=== PATIENT | female | born 1955 | race Caucasian/White ===

== ENCOUNTER 2019-12-02 15:13 | Emergency (ER) | payer MEDICAID ==
[~2019-12-02] VITALS: Ht 162.6 cm; Wt 81.6 kg
[2019-12-02 15:24] VITALS: BP 100/56
--- NOTE | 2019-12-02 15:26 | NUR ---
PT WHEELCHAIRED TO ER BED 11
--- NOTE | 2019-12-02 15:30 | NUR ---
PT BROUGHT IN BY DAUGHTER FOR CONCERNED PT IS NOT TAKING CARE OF HERSELF WELL. RECENTLY NOTED JAUNDICE APPEARANCE, ASCITES, SWELLING TO HER LEGS ALSO OF PT DOWNPLAYING HER CONDITION WITH FAMILY AND HEALTHCARE STAFF. DENIES N/V/D; SKIN IS PINK/WARM/DRY; AAOX4 WITH EVEN AND STEADY GAIT; LUNGS CLEAR BL; HR EVEN AND REGULAR; PT DENIES ANY FEVER, CP, SOB, OR COUGH AT THIS TIME; PATIENT STATES PAIN OF 0/10 AT THIS TIME; VSS; PATIENT POSITIONED FOR COMFORT; HOB ELEVATED; BEDRAILS UP X1; BED DOWN. ER MD MADE AWARE OF PT STATUS.
[2019-12-02] MEDS ORDERED: DICYCLOMINE HCL LIQUID 20 MG, ALUMINUM HYD/MAG/SIMETHICONE 30 ML, LIDOCAINE VISCOUS 2% ... PO ONE ×3 (15:45)
[2019-12-02] MEDS ORDERED: DICYCLOMINE HCL LIQUID 10 MG/5 ML UDC ONE (16:08)
[2019-12-02] MEDS ORDERED: ALUMINUM HYD/MAG/SIMETHICONE 30 ML UDC ONE (16:08)
[2019-12-02] MEDS ORDERED: LIDOCAINE VISCOUS 2% 20 ML UDC ONE (16:08)
[2019-12-02 16:19] LABS: BASOPHILS % (AUTO) 0.2 % (0.0-2.0); EOSINOPHILS # (AUTO) 0.1 K/uL (0-0.4); EOSINOPHILS % (AUTO) 0.9 % (0.0-4.0); HEMATOCRIT 37.1 % (36-48); HEMOGLOBIN 12.2 g/dL (12.0-16.0); LYMPHOCYTES # (AUTO) 1.2 K/uL (2.5-16.5); MEAN CORPUSCULAR HEMOGLOBIN 31 pg (27-31); MEAN CORPUSCULAR HGB CONC 33 g/dL (33-37); MEAN CORPUSCULAR VOLUME 94.4 fL (80-94); MONOCYTES # (AUTO) 0.9 K/uL (0.8-1.0); MONOCYTES % (AUTO) 9.5 % (1.7-9.3); NEUTROPHILS # (AUTO) 7.1 K/uL (1.8-7.7); NEUTROPHILS % (AUTO) 76.4 % (42.2-75.2); PLATELET COUNT (AUTO) 154 K/uL (140-450); RED BLOOD CELL COUNT(AUTO) 3.93 MIL/uL (4.20-5.40); RED CELL DISTRIBUTION WIDTH 13.7 % (11.6-13.7); WHITE BLOOD COUNT (AUTO) 9.3 K/uL (4.8-10.8)
[2019-12-02 16:41] LABS: ALBUMIN 2.3 g/dL (3.4-5.0); ANION GAP 10.4 (8-16); CARBON DIOXIDE 27.7 mmol/L (21-32); CREATININE 1.5 mg/dL (0.6-1.3); POTASSIUM 4.1 mmol/L (3.5-5.1); TOTAL BILIRUBIN 0.8 mg/dL (0.0-1.0)
[2019-12-02] MEDS ORDERED: INSULIN LISPRO 100 UNITS/ML VIAL SUBQ ONE (16:55)
--- NOTE | 2019-12-02 17:00 | NUR ---
CALLED [facility] FOR MEDICATION VERIFICATION AND WAS TOLD THEY WILL CONTACT THE PHARMACIST AND VERIFY THE MEDS NICKI.
--- NOTE | 2019-12-02 18:26 | NUR ---
BS 285. INSULIN HUMAGLOG [address] MALONE
[2019-12-02 18:38] VITALS: BP 133/75
--- NOTE | 2019-12-02 18:38 | NUR ---
Patient discharged with v/s stable. Written and verbal after care instructions given and explained. Patient alert, oriented and verbalized understanding of instructions. Ambulatory with steady gait. All questions addressed prior to discharge. ID band removed. Patient advised to follow up with PMD. Rx of Famotidine and Peptic Relief given. Patient educated on indication of medication including possible reaction and side effects. Opportunity to ask questions provided and answered.
== END 2019-12-02 18:38 | disposition home or self-care (01) ==
LOC: MED 15:13
DX: R10.13 Epigastric pain (principal); E11.22 Type 2 diabetes mellitus with diabetic chronic kidney disease; I12.9 Hypertensive chronic kidney disease with stage 1 through stage 4 chronic kidney disease, or unspecified chronic kidney disease; N18.9 Chronic kidney disease, unspecified; E78.00 Pure hypercholesterolemia, unspecified; E11.65 Type 2 diabetes mellitus with hyperglycemia
CPT/HCPCS: 36415; 76705; 80053; 83690; 84484; 85025; 93005; 99285; J1815; Q0092

== ENCOUNTER 2020-02-12 15:44 | Inpatient (IN) | payer MEDICAID, SELFPAY ==
[~2020-02-12] VITALS: Ht 134.6 cm; Wt 85.3 kg
[2020-02-12 16:10] VITALS: BP 150/75
--- NOTE | 2020-02-12 16:22 | NUR ---
Patient transferred to bed 4 via wheelchair by triage nurse.
--- NOTE | 2020-02-12 16:50 | NUR ---
64 YEAR OLD PATIENT COMPLAINS OF BURNING ON URINATION AT TIMES, BUT DOES NOT KNOW WHEN SYMPTOMS STARTED. PER PT SHE HAS ALSO HAD UPPER ABDOMINAL PAIN AND SOMETIMES DIARRHEA, AND THAT THIS HAS BEEN SINCE LAST MONTH. PT DENIES NAUSEA, VOMITTING. PT AOX4, BREATHING EVEN AND UNLABORED, SKIN WARM AND DRY. BED IN LOWEST POSITION, LOCKED, BED RAIL UPX1. PMH - DM2, HTN ALLERGIES - NKA
--- NOTE | 2020-02-12 17:16 | NUR ---
Dr. Toth is evaluating the patient at bedside.
[2020-02-12 17:22] LABS: APPEARANCE,URINE CLEAR (CLEAR); BILIRUBIN,URINE 1+ (NEGATIVE); BLOOD, URINE NEGATIVE (NEGATIVE); COLOR,URINE ORANGE (YELLOW); LEUKOCYTE ESTERASE ,URINE 1+ (NEGATIVE); NITRITE, URINE NEGATIVE (NEGATIVE); PH,URINE 5.5 (5.0-9.0); UGLUCOSE NEGATIVE (NEGATIVE)
[2020-02-12 17:34] LABS: RBC,URINE 0-5 /HPF (0-5); WBC,URINE 16-25 (MOD) /HPF (0-5)
[2020-02-12 17:47] LABS: BASOPHILS % (AUTO) 0.2 % (0.0-2.0); EOSINOPHILS % (AUTO) 0.3 % (0.0-4.0); HEMATOCRIT 36.5 % (36-48); LYMPHOCYTES # (AUTO) 1.5 K/uL (2.5-16.5); LYMPHOCYTES % (AUTO) 19.2 % (20.5-51.1); MEAN CORPUSCULAR HEMOGLOBIN 32 pg (27-31); MEAN CORPUSCULAR HGB CONC 33 g/dL (33-37); MONOCYTES # (AUTO) 0.7 K/uL (0.8-1.0); MONOCYTES % (AUTO) 9.3 % (1.7-9.3); NEUTROPHILS # (AUTO) 5.4 K/uL (1.8-7.7); PLATELET COUNT (AUTO) 170 K/uL (140-450); RED CELL DISTRIBUTION WIDTH 15.7 % (11.6-13.7); WHITE BLOOD COUNT (AUTO) 7.6 K/uL (4.8-10.8)
[2020-02-12 18:10] LABS: ALBUMIN 2.3 g/dL (3.4-5.0); ANION GAP 13.1 (8-16); CARBON DIOXIDE 28.6 mmol/L (21-32); CREATININE 0.9 mg/dL (0.6-1.3); POTASSIUM 3.7 mmol/L (3.5-5.1); TOTAL BILIRUBIN 1.2 mg/dL (0.0-1.0)
--- NOTE | 2020-02-12 18:43 | NUR ---
ERMD MADE AWARE OF PT O2 SATURATION, PT PLACED ON 5L NC. RT AT BEDSIDE. PT MOVED TO BED 1 ISOLATION ROOM.
[2020-02-12] MEDS ORDERED: AZITHROMYCIN 500 MG in DEXTROSE 5% 250 ML IV ONE (18:55)
[2020-02-12] MEDS ORDERED: DEXAMETHASONE 10 MG/ML VIAL IVP ONE (18:55)
--- NOTE | 2020-02-12 19:15 | NUR ---
REPORT GIVEN TO MANPREET FLYNN, TRANSFER OF CARE AT THIS TIME.
[2020-02-12] MEDS ORDERED: cefTRIAXone 1,000 MG VIAL ONE (19:20)
[2020-02-12] MEDS ORDERED: AZITHROMYCIN 500 MG INJ VIAL IV ONE (19:21)
--- NOTE | 2020-02-12 19:30 | NUR ---
Dr. Toth at bedside re-evaluating pt. Pt informed that she is Covid + by ERMD. IV placed by Primary RN. Medications given as ordered.
--- NOTE | 2020-02-12 20:10 | NUR ---
PT ASSISTED TO BEDSIDE COMMODE TO USE RESTROOM. SKIN INTACT. PT ABLE TO AMBULATE WITH STEADY AGIT. PT PLACED IN GOWN. CALL LIGHT WITHIN REACH. PT REMAINS ON CLINICAL TRIAL HEAD. MEDREC COLLECTED.
--- NOTE | 2020-02-12 21:15 | NUR ---
IV removed, catheter intact and site benign. Applied folded 4x4 gauze and tape to stop bleeding.
--- NOTE | 2020-02-12 21:16 | NUR ---
IV PLACED IN L FA 24G. IV SITE PATENT.
[2020-02-12] MEDS ORDERED: ATA25 PO (21:24)
[2020-02-12] MEDS ORDERED: SIMV10TA1 PO (21:24)
[2020-02-12] MEDS ORDERED: GABA300C PO (21:24)
[2020-02-12] MEDS ORDERED: OMEP20TC12 PO (21:24)
[2020-02-12] MEDS ORDERED: DEXT 5% /NACL 0.9% 1,000 ML IV SCH (21:30)
[2020-02-12] MEDS ORDERED: HYDROcodone/APAP 7.5/325 MG 1 TAB PO PRN (21:30)
[2020-02-12] MEDS ORDERED: ONDANSETRON 4 MG/2 ML VIAL IM/IVP PRN (21:30)
[2020-02-12] MEDS ORDERED: guaiFENesin DM 200/20 MG-10 ML 10 ML UDC PO PRN (21:30)
[2020-02-12] MEDS ORDERED: POTASSIUM CHLORIDE 10 MEQ TABER PO PRN (21:30)
[2020-02-12] MEDS ORDERED: DOCUSATE SODIUM 100 MG GELCAP PO PRN (21:30)
[2020-02-12] MEDS ORDERED: ACETAMINOPHEN 325 MG TAB PO PRN (21:30)
[2020-02-12] MEDS ORDERED: ALBUTEROL SULFATE/IPRATROPIU 3 ML SOL IH PRN (21:35)
[2020-02-12] MEDS ORDERED: ALBUTEROL HFA MDI 90 MCG/ACTUATION 8 GM INH PRN (21:35)
--- NOTE | 2020-02-12 21:45 | NUR ---
XRAY AT BEDSIDE.
[2020-02-12 22:00] LABS: BARBITURATE, URINE NEGATIVE ng/ml (NEG <=200); BENZODIAZEPINE, URINE NEGATIVE ng/mL (NEG <=200); CANNABINOID, URINE NEGATIVE ng/mL (NEG <=50); COCAINE, URINE NEGATIVE ng/mL (NEG <=300); OPIATE, URINE NEGATIVE ng/mL (NEG <=2000); PHENCYCLIDINE SCREEN,URINE NEGATIVE ng/mL (NEG <=25)
--- NOTE | 2020-02-12 22:00 | NUR ---
Patient will be admitted to care of DR. ASHTON. Admited to TELE. Will go to room 119A. Belongings list completed. Report to ADEEL FLYNN. ETA: 15 MIN TO ROOM.
--- NOTE | 2020-02-12 22:00 | NUR ---
REPORT RECEIVED BY PHONE FROM CASTRO URBAN REDEVELOPMENT SPECIALIST NURSE OVER THE PHONE FOR CONTINUITY OF CARE, PT IN STABLE CONDITION.
[2020-02-12 22:05] LABS: PROTHROMBIN TIME 11.3 secs (10.8-13.4)
--- NOTE | 2020-02-12 22:15 | NUR ---
PT TAKEN TO BED 119A, PT PLACED ON TELE MONITOR AND TAKEN VIA GURNEY WITH ASSISTANCE FROM DALE BANSAL. PT WEARING MASK AND COVID PRECAUTIONS IN PLACE. PER PT GAVE PERMISSION TO TELL THAT SHE IS BEING ADIMTTED. [phone] - OSWALDO.
[2020-02-12 22:23] LABS: CHOL/HDL RATIO 5.6 (1-4.5); FREE T4 (FREE THYROXINE) 1.54 ng/dL (0.76-1.46); MAGNESIUM 1.9 mg/dL (1.8-2.4); PHOSPHORUS 2.8 mg/dL (2.5-4.9); THYROID STIMULATING HORMONE 0.97 uIU/mL (0.34-3.74)
--- NOTE | 2020-02-12 22:45 | NUR ---
PT BROUGHT UP BY JHONY TO ROOM 119 AND TRANSFERRED TO BED A. PT IS AOX4 AND SKIN INTACT. PT ON 10 LITERS NON REBREATHER MASK AND IS STATING 98%. OTHER V/S FOLLOWS: T 98.7 P 88 R 22 B/P 160/69 02 98% WITH NON REBREATHER MASK. PT IS A FALLS RISK AND AMBULATES WITH ASSISTANCE. SHE HAS A BEDSIDE COMMODE TO PIVOT TRANSFER., PT DECLINES YELLOW GOWN SIGN AND SOCKS AT THIS TIME. RISKS AND BENEFITS EXPLAINED, PT SAID SHE IS COLD NOW, MAYBE WILL CHANGE GOWNS LATER.
--- NOTE | 2020-02-13 00:30 | NUR ---
PT IN BED WITH NON REBREATHER MASK ON AT 8 LITERS SUPPLEMENTAL 02. MRSA SWAB DONE, ADMISSION QUESTIONS ASKED AND ANSWERED VIA [employer] LEAD MATERIAL HANDLER SYSTEM WITH MANDY . PT ACKNOWLEDGED UNDERSTANDING. SHE DENIES ANY PAIN AT THIS TIME. FLUIDS OF D5NS HUNG AND RUNNING AT 80MLS/HR, ORDERED. VIA 24G ON LEFT F/A. ALL REQUESTED NEEDS ATTENDED AND COMMODE AT BEDSIDE. ALL UNIVERSAL FALLS PRECAUTIONS IN PLACE.
[2020-02-13] MEDS: ALBUTEROL SULFATE/IPRATROPIU 3 ML SOL IH SCH (01:00)
--- NOTE | 2020-02-13 02:10 | NUR ---
PCR ORDERED BY MD DONE AT BEDSIDE AND SENT TO LAB.
--- NOTE | 2020-02-13 02:30 | NUR ---
PT UP AND ASSISTED TO COMMODE AND BACK. EXTENSION FOR NON REBREATHER PROVIDED. 02 AT 10 LITERS WAS DOWN TO 87% , NON REBREATHER BUMPED UP TO 13 AND WENT UP TO 90-91% RT MADE AWARE AND SAID THEY WOULD ASLO REEVALUATE PT AT BEDSIDE.
[2020-02-13 04:00] VITALS: BP 128/67
--- NOTE | 2020-02-13 04:45 | NUR ---
PT IN BED ASLEEP WITH MASK ON AT 15 LITERS PT STATING AT 90%.
[2020-02-13 06:04] LABS: BASOPHILS % (AUTO) 0.1 % (0.0-2.0); EOSINOPHILS % (AUTO) 0.2 % (0.0-4.0); HEMATOCRIT 33.7 % (36-48); HEMOGLOBIN 11.2 g/dL (12.0-16.0); LYMPHOCYTES # (AUTO) 0.9 K/uL (2.5-16.5); LYMPHOCYTES % (AUTO) 19.9 % (20.5-51.1); MEAN CORPUSCULAR HEMOGLOBIN 32 pg (27-31); MEAN CORPUSCULAR HGB CONC 33 g/dL (33-37); MEAN CORPUSCULAR VOLUME 96.4 fL (80-94); MONOCYTES # (AUTO) 0.2 K/uL (0.8-1.0); MONOCYTES % (AUTO) 4.2 % (1.7-9.3); NEUTROPHILS # (AUTO) 3.2 K/uL (1.8-7.7); NEUTROPHILS % (AUTO) 75.6 % (42.2-75.2); PLATELET COUNT (AUTO) 152 K/uL (140-450); RED BLOOD CELL COUNT(AUTO) 3.49 MIL/uL (4.20-5.40); RED CELL DISTRIBUTION WIDTH 15.5 % (11.6-13.7); WHITE BLOOD COUNT (AUTO) 4.3 K/uL (4.8-10.8)
[2020-02-13 06:32] LABS: ALBUMIN 2.1 g/dL (3.4-5.0); ANION GAP 12.9 (8-16); CARBON DIOXIDE 26.7 mmol/L (21-32); CREATININE 0.9 mg/dL (0.6-1.3); POTASSIUM 3.6 mmol/L (3.5-5.1); TOTAL BILIRUBIN 0.9 mg/dL (0.0-1.0)
--- NOTE | 2020-02-13 07:30 | NUR ---
RECEIVED BEDSIDE REPORT FROM FUEL BUYER NURSE ADEEL RN, PT RESTING, NO DISTRESS NOTED, PT ON NONREBREATHER MASK 15LPM O2, NO SOB NOTED, PT SATURATING @ 92%, PT ALERT ORIENTED CITIZEN OF [place] SPEAKING, ABLE TO LET NEEDS KNOWN, IV TO L AC 24 G PATENT INTACT, INFUSING D5NS @ 80ML/HR, INFUSING WELL, INITIAL ASSESSMENT DONE, ALL SAFETY PRECAUTION, WILL CONTINUE TO MONITOR.
[2020-02-13 08:00] VITALS: BP 136/77
[2020-02-13] MEDS ORDERED: DEXTROSE 50% 50 ML SYR IVP PRN (08:10)
[2020-02-13] MEDS ORDERED: AZITHROMYCIN 250 MG TAB PO SCH (09:00)
--- NOTE | 2020-02-13 09:12 | NUR ---
PATIENT HAS BEEN SCREENED AND CATEGORIZED HIGH NUTRITION RISK. PATIENT WILL BE SEEN WITHIN 1-2 DAYS OF ADMISSION. 02/13/20-02/14/[address]
[2020-02-13] MEDS: PANTOPRAZOLE 40 MG TABEC PO SCH (09:31)
[2020-02-13] MEDS: ZINC SULF 220 MG CAP PO SCH (09:31)
--- NOTE | 2020-02-13 09:31 | NUR ---
DUE MEDICATION GIVEN, PT TOLERATED WELL, NO DISTRESS NOTED, WILL CONTINUE TO MONITOR.
[2020-02-13] MEDS: ASCORBIC ACID 500 MG TAB PO SCH (10:10)
[2020-02-13] MEDS ORDERED: LOVENOX 1MG/KG Q12H SUBQ SCH (10:20)
--- NOTE | 2020-02-13 11:28 | NUR ---
SOCIAL WORK NOTE: SW WAS UNABLE TO MEET PATIENT AT BEDSIDE DUE TO MEDICAL CONDITION. SW CONTACTED PATIENT'S ROOM PHONE BUT PATIENT DID NOT ANSWER. SW CONTACTED EMERGENCY CONTACT, OSWALDO BARAHONA - - [phone] AND DAUGHTER - CATHY WEEKS - [phone] AND LEFT VM. SW WILL FOLLOW UP TO COMPLETE ASSESSMENT. Addendum: 02/19/20 at 1353 by Armando Douglas SS [facility] Patient: Sharri Barahona : 1955 Age/Sex: 64/F Unit#: [id number] Room/Bed: IC01/A User: Armando CHRISTIANSON Date: 02/19/20 13:49 Type: CM Discharge Plan Assessment Patient's Orientation Unable To Assess Information Provided By CATHY GOODENYES - DAUGHTER Comments SW WAS UNABLE TO MEET PATIENT AT BEDSIDE DUE TO MEDICAL CONDITION. SW CONTACTED PATIENT'S AND LEFT VM. SW CALLED PATIENT'S DAUGHTER AND COMPLETED ASSESSMENT. Furniture Sales Associate, Realtionship and Phone Number OSWALDO BARAHONA [phone] CATHY WEEKS DAUGHTER [phone] Healthcare Power of Gasket Inspector No Does Patient Have a POLST No Identifying Problems No Social Work Triggers Is A Social Work Consult Needed No Mandate Report Filed No Explanation Of Identifying Problems PATIENT IS A 64-YEAR-OLD FEMALE ADMITTED FOR COVID+ AND HYPOXIA. PATIENT HAS PMHX OF BREAST CANCER, HYPERLIPEDEMIA, HYPERTENSION, DIABETES, AND PARAPLEGIA. DAUGHTER REPORTED NO HISTORY OF MENTAL HEALTH OR SUBSTANCE ABUSE. Admitted From Home Pre-Admission Level Of Functioning Status Assist With ADL Level Of Functioning Comment PER DAUGHTER, PATIENT'S ASSISTS WITH PREPARING MEALS AND BATHING. Prior Resources/Services Used In Last 12 Months No Prior Resources Used Prior DME Wheelchair Dialysis Comments N/A Living Situation House Lives With Spouse Patient Had Caregiver No Home Support CG/Fam Able To Meet Need Financial Issues No Known Financial Issue Referral To The Financial Counselor Needed No Factors/Needs No D/C Needs Identified Explanation And Or Other Factors Affecting/Possible DC Needs PATIENT'S DAUGHTER STATED SHE WOULD PROVIDE TRANSPORTATION FOR PATIENT TO RETURN HOME. Pt/Rep Participated In Discharge Plan Yes Patient/Family Agress With Discharge Plan Yes Discharge Plan Comments TENTATIVE DISCHARGE PLAN IS FOR PATIENT TO RETURN HOME. DC Plan Status Initiated Addendum: 02/23/20 at 1450 by Armando Douglas SS [facility] CONTACTED CATHY MICKY [phone] TO FOLLOW UP WITH FAMILY AND OFFER RESOURCES OR COUNSELING. CATHY POLITELY DECLINED AND REQUESTED FOR [facility] PHONE NUMBER. [facility] PROVIDED DIRECT LINE AND WILL REMAIN AVAILABLE IF FURTHER ISSUES ARISE.
[2020-02-13] MEDS: BLOOD GLUCOSE MONITORING 1 DEV DEV FS SCH ×3 (11:30→20:47)
--- NOTE | 2020-02-13 11:30 | NUR ---
PT BLOOD SUGAR 405, NOTIFIED DR. ASHTON, PER DR TO GIVE SLIDING SCALE 10 UNITS, AND TO ORDER METFORMIN 100MG PO BID AND GIVE ONE RIGHT NOW. WILL PUT IN ORDERS AND CONTINUE WITH ORDERS.
[2020-02-13 12:00] VITALS: BP 151/79
[2020-02-13] MEDS ORDERED: metFORMIN 500 MG TAB PO SCH (12:50)
[2020-02-13] MEDS: NACL 0.9% 1,000 ML IV SCH (13:48)
--- NOTE | 2020-02-13 13:48 | NUR ---
METFORMIN GIVEN, PT TOLERATED WELL, BEDDING CHANGED PER PT REQUEST, PT RESTING, WILL CONTINUE TO MONITOR.
--- NOTE | 2020-02-13 14:24 | NUR ---
DC PLANNIN YRS OLD FEMALE PATIENT WAS ADMITTED FROM HOME WITH A DX OF COVID+ HYPOXIA. PT HAS A HX OF BREAST CANCER, HTN, DM AND PARAPLEGIA. CXR SHOWED BILATERAL AIRSPACE CONSOLIDATION CAN RELATE TO PULMONARY EDEMA. CT ABD SHOWED LIVER CIRRHOSIS.RAPID COVID TEST POSITIVE , PCR IS PENDING. BLOOD AND URINE CULTURE PENDING. ON O2 15L NON-REBREATHER SATING 90. STARTED COVID PROTOCOL IVF ,IV ABX ROCEPHIN AND AZITHROMYCIN AND CONTINUE HOME MEDS. CONSULTED WITH PULMO AND ID. DC PLAN TO GO HOME WHEN STABLE. CM TO FOLLOW Addendum: 02/20/20 at 1202 by Elise Saravia PATIENT REMAINS SEDATED AND INTUBATED. ON AMIODARONE PO, ROCEPHIN, SOLU MEDROL. CURRENT LABS INCLUDE WBC 11.3, H/H 9.7/30.6, NA/K 143/3.9, BUN/CREA 78/2.7, ALB 1.9. SEEN BY PULMO - PRONING PROTOCOL, HOLD ANTICOAGULATION DUE TO LOW PLT, TITRATE FIO2 TO KEEP SAT >88%. Addendum: 02/21/20 at 1218 by Elise B. Berdijo CM S/P HD CATHETER PLACEMENT 02/20/[address] MARTINEZ FOR HD TODAY Addendum: 02/23/20 at 1219 by Elise Saravia CM REMAINS INTUBATED AND SEDATED TO VENT, FIO2 55%, PEEP 11, O2 SAT 94%. CURRENT LABS INCLUDE WBC 11.0, H/H 8.9/27.2, NA/K 139/3.6, BUN/CREA 54/2.4, MAG 1.7. ON SOLU MEDROL, ROCEPHIN. SEEN BY PULMO - PRONING PROTOCOL, TITRATE FIO2 TO KEEP SAT >88%. SEEN BY NEPHRO - HD TODAY AND TOMORROW, TUBE FEEDING TO RESUMED EVEN IN PRONE, MONITOR UOP AND LABS CLOSELY. SEEN BY CARDIO - WILL ADD PRN IV CARDIZEM, NIK SYNEPHRINE FO SBP >90, MAP >65, EVENTUAL ECHO PENDING ISOLATION RESTRICTIONS. ON ROCEPHIN, SOLU MEDROL, REGLAN.
--- NOTE | 2020-02-13 15:30 | NUR ---
02/13/20 RD INITIAL ASSESSMENT COMPLETED PLEASE REFER TO NUTRITION ASSESSMENT UNDER CARE ACTIVITY FOR ESTIMATED NUTRITIONAL NEEDS. 1. CONTINUE CLEAR LIQUID DIET TOLERATED 2. RECOMMEND ENSURE CLEAR TID 3. IF/WHEN MEDICALLY STABLE, CONSIDER CCHO 45 GM DIET WITH GLUCERNA BID 4. RD PROVIDED NUTRITION EDUCATION REGARDING COVID-[address] TO FOLLOW-UP 3-5 DAYS, MODERATE RISK FAM WYLIE RD
[2020-02-13 16:00] VITALS: BP 145/72
[2020-02-13] MEDS: metFORMIN 500 MG TAB PO SCH ×2 (16:09→20:32)
--- NOTE | 2020-02-13 16:09 | NUR ---
CALLED PHARMACY REGARDING DOSE OF METFORMIN DUE @ 1700, PT JUST GOT A DOSE @ 1400, PER PHARMACY TO HOLD MEDICATION THE DOSE IS TOO CLOSE
[2020-02-13] MEDS ORDERED: remdesivir COMMUNICATION ORDER 1 EA MISC MC PRN (17:10)
[2020-02-13] MEDS: INSULIN LISPRO SLIDING SCALE 100 UNITS/ML VIAL SUBQ PRN ×2 (17:20→20:48)
[2020-02-13] MEDS ORDERED: CLINICAL MONITORING MC PRN (17:40)
[2020-02-13] MEDS ORDERED: LOPERAMIDE 2 MG CAP PO PRN ×2 (18:10→18:15)
[2020-02-13] MEDS: REMDESIVIR (EUA) 100 MG in NACL 0.9% 100 ML IV SCH (18:30)
[2020-02-13] MEDS ORDERED: REMDESIVIR (EUA) 200 MG in NACL 0.9% 100 ML IV SCH (18:30)
--- NOTE | 2020-02-13 19:25 | NUR ---
ENDORSED PT TO AUTO HEATER MECHANIC NURSE STONEY, PT RESTING, CALL LIGHT WITHIN REACH.
--- NOTE | 2020-02-13 19:26 | NUR ---
RECEIVED BEDSIDE REPORT FROM DAY SHIFT NURSE. PT IN BED WITH HOB ELEVATED. PT AAOX4, ABLE TO MAKE NEEDS KNOWN. PT ON O2 15LPM/NRB. PT NOT IN DISTRESS, NO SOB NOTED. CURRENT O2 SAT 90%. ABDOMEN SOFT AND NON-TENDER. PT WITH EPISODES OF DIARRHEA. SKIN IS WARM, DRY, AND INTACT. PT WITH IV ACCESS ON L AC 24G PATENT INTACT, IVF INFUSING WELL. PT DENIES ANY PAIN OR DISCOMFORT AT THIS TIME. NO REQUESTS MADE. PT KEPT COMFORTABLE. SAFETY PRECAUTIONS IN PLACE, CALL LIGHT WITHIN REACH. WILL CONTINUE TO MONITOR.
[2020-02-13 20:25] VITALS: BP 122/70
[2020-02-13] MEDS: ENOXAPARIN 60 MG/0.6 ML SYR SUBQ SCH (20:33)
--- NOTE | 2020-02-13 20:43 | NUR ---
Positive COVID-19 test results were received from lab. A copy of the test results were given to Infection
--- NOTE | 2020-02-13 20:48 | NUR ---
VS STABLE. SCHEDULED MEDS GIVEN ORDERED. BLOOD SUGAR 273. INSULIN COVERAGE GIVEN ORDERED. O2 15LPM/NRB IN PLACE. PT NOT IN DISTRESS. SAFETY MEASURES IN PLACE. CALL LIGHT WITHIN REACH. WILL CONTINUE TO MONITOR.
--- NOTE | 2020-02-13 22:03 | NUR ---
ROUNDS MADE. PT IN BED WATCHING TV. O2 IN PLACE. PT NOT IN DISTRESS. O2 SAT 90%. DENIES ANY PAIN OR DISCOMFORT. PT KEPT COMFORTABLE. SAFETY MEASURES IN PLACE, CALL LIGHT WITHIN REACH. WILL CONTINUE TO MONITOR.
[2020-02-13] MEDS ORDERED: Z-GUARD PASTE TP PRN (23:00)
[2020-02-14] VITALS (7 sets, daily range): BP systolic 118–145; BP diastolic 59–78
--- NOTE | 2020-02-14 00:11 | NUR ---
VS STABLE. O2 IN PLACE. PT NOT IN DISTRESS. ASSISTED CREASING MACHINE OPERATOR IN PERINEAL CARE. PT TOLERATED CARE PROVIDED. NO REQUESTS MADE. PT KEPT COMFORTABLE. SAFETY MEASURES IN PLACE. CALL LIGHT WITHIN REACH. WILL CONTINUE TO MONITOR.
[2020-02-14] MEDS: NACL 0.9% 1,000 ML IV SCH ×2 (01:10→15:31)
[2020-02-14] MEDS: Z-GUARD PASTE TP SCH ×2 (01:20→13:00)
[2020-02-14] MEDS: ZOLPIDEM 5 MG TAB PO PRN ×2 (02:07→23:10)
--- NOTE | 2020-02-14 02:07 | NUR ---
PT COMPLAINING OF DIFFICULTY SLEEPING AND HAVING MULTIPLE BOWEL MOVEMENTS. PRN AMBIEN AND IMMODIUM GIVEN ORDERED. WILL CONTINUE TO MONITOR.
--- NOTE | 2020-02-14 04:09 | NUR ---
VS STABLE. PT IN BED RESTING WITH HOB ELEVATED. NRB MASK IN PLACE. CURRENT O2 SAT 93%. PT KEPT COMFORTABLE. SAFETY MEASURES IN PLACE. CALL LIGHT WITHIN REACH. WILL CONTINUE TO MONITOR.
--- NOTE | 2020-02-14 05:20 | NUR ---
HEARD PATIENT SCREAMING. WENT TO ROOM AND FOUND THE PT SITTING ON THE FLOOR BESIDE THE BED WITHOUT HER NON-REBREATHER MASK. PT SAID SHE WAS TRYING TO GO TO HER BEDSIDE COMMODE THEN SHE FELL BUTTOCKS FIRST AND HIT HER HEAD ON THE SIDE OF BED. PT DENIES ANY PAIN AT THIS TIME. PT ASSISTED BACK TO BED AND PLACED NON REBREATHER MASK ON. O2 SAT NOW BACK TO 88%. PERINEAL CARE DONE WELL. PT INSTRUCTED NOT TO GET OUT OF BED AND USE HER CALL LIGHT AND ASK FOR ASSISTANCE SHE WAS DOING ALL NIGHT. MD AWARE, HEAD CT ORDERED. SAFETY MEASURES IN PLACE. BED IN LOW POSITION, SIDE RAILS RAISED, YELLOW SOCKS ON, CALL LIGHT WITHIN REACH. WILL CONTINUE TO MONITOR. Addendum: 02/14/20 at 0623 by Mike Buenrostro RN VITAL SIGNS STABLE
[2020-02-14 05:27] LABS: BASOPHILS % (AUTO) 0.1 % (0.0-2.0); HEMATOCRIT 33.6 % (36-48); LYMPHOCYTES # (AUTO) 0.9 K/uL (2.5-16.5); LYMPHOCYTES % (AUTO) 8.9 % (20.5-51.1); MEAN CORPUSCULAR HEMOGLOBIN 32 pg (27-31); MEAN CORPUSCULAR HGB CONC 33 g/dL (33-37); MEAN CORPUSCULAR VOLUME 96.9 fL (80-94); MONOCYTES # (AUTO) 0.6 K/uL (0.8-1.0); MONOCYTES % (AUTO) 5.6 % (1.7-9.3); NEUTROPHILS # (AUTO) 8.4 K/uL (1.8-7.7); NEUTROPHILS % (AUTO) 85.4 % (42.2-75.2); PLATELET COUNT (AUTO) 161 K/uL (140-450); RED BLOOD CELL COUNT(AUTO) 3.47 MIL/uL (4.20-5.40); RED CELL DISTRIBUTION WIDTH 15.9 % (11.6-13.7); WHITE BLOOD COUNT (AUTO) 9.8 K/uL (4.8-10.8)
[2020-02-14 06:39] LABS: ALBUMIN 1.9 g/dL (3.4-5.0); ANION GAP 14.1 (8-16); CREATININE 0.7 mg/dL (0.6-1.3); POTASSIUM 3.1 mmol/L (3.5-5.1); TOTAL BILIRUBIN 0.6 mg/dL (0.0-1.0)
[2020-02-14] MEDS: BLOOD GLUCOSE MONITORING 1 DEV DEV FS SCH ×4 (06:42→22:00)
[2020-02-14] MEDS: INSULIN LISPRO SLIDING SCALE 100 UNITS/ML VIAL SUBQ PRN ×4 (06:44→21:30)
--- NOTE | 2020-02-14 07:28 | NUR ---
ENDORSED TO DAY SHIFT NURSE FOR CONTINUITY OF CARE
[2020-02-14 08:25] LABS: T4 (THYROXINE) 9.2 ug/dL (4.5-12.0)
[2020-02-14] MEDS: ASCORBIC ACID 500 MG TAB PO SCH (09:11)
[2020-02-14] MEDS: PANTOPRAZOLE 40 MG TABEC PO SCH (09:11)
[2020-02-14] MEDS: ZINC SULF 220 MG CAP PO SCH (09:11)
[2020-02-14] MEDS: ENOXAPARIN 60 MG/0.6 ML SYR SUBQ SCH ×2 (09:20→21:30)
--- NOTE | 2020-02-14 09:20 | NUR ---
PATIENT'S O2 SAT 95% WITH 15L NRB. CALLED RT, PER RT LUIS, KEEP O2 SAT >80% WITH COVID PT WITH 15L NRB. ENCOURAGED PATIENT TO TAKE DEEP BREATH AND RELAX. SAFETY MEASURES IN PLACE, CALL LIGHT WITHIN REACH. WILL CONTINUE TO MONITOR. Addendum: 02/14/20 at 2025 by Amina Abbott RN O2 SAT 85%, NOT 95%.
[2020-02-14] MEDS: metFORMIN 500 MG TAB PO SCH ×2 (09:31→17:12)
--- NOTE | 2020-02-14 09:31 | NUR ---
CALLED THE PHARMACY TO CLARIFIED WITH PHARMACIST REGARDING THE METFORMIN BID. SCHOOL COMMISSIONER NURSE USED 02/14/2020 0800 SLOT. ADMINISTERED METFORMIN 1000MG. WILL FOLLOW THE SCHEDULE TO GIVE MEDICATION.
--- NOTE | 2020-02-14 09:40 | NUR ---
RECHECKED PATIENT. O2 SAT 93% WHILE PATIENT IN SITTING POSITION. SAFETY MEASURES IN PLACE, CALL LIGHT WITHIN REACH. WILL CONTINUE TO MONITOR.
--- NOTE | 2020-02-14 11:42 | NUR ---
4 UNITS OF HUMALOG GIVEN FOR BLOOD GLUCOSE LEVEL 208. EDUCATION PROVIDED. PATIENT TOLERATED WELL. O2 SAT 89% WITH 15L NRB. ENCOURAGED PATIENT TO RELAX, TAKE DEEP BREATHE. PATIENT VERBALIZED UNDERSTAND. WILL CONTINUE TO MONITOR.
--- NOTE | 2020-02-14 13:27 | NUR ---
PATIENT'S O2 SAT 86% WITH 15L NRB. HR 93. ENCOURAGED PATIENT TO TAKE DEEP BREATH AND KEEP THE NRB MASK ON. PER RT RAHJE, KEEP O2 SAT ABOVE 80% FOR COVID PATIENT WITH 15L NRB. WILL CONTINUE TO MONITOR.
--- NOTE | 2020-02-14 14:15 | NUR ---
DISCONTINUED IV AT LEFT FOREARM. STARTED NEW IV AT LEFT AC 20G, EASILY FLUSH WITH NS. PATIENT DENIES PAIN. ENCOURAGED PATIENT TO TAKE DEEP BREATH. O2 SAT INCREASED FROM 88% TO 90%. HR 80. SAFETY MEASURES IN PLACE, WILL CONTINUE TO MONITOR.
[2020-02-14] MEDS ORDERED: POTASSIUM CHLORIDE 40 MEQ, LIDOCAINE MPF 1% 25 MG in NACL 0.9% 250 ML IV SCH (15:00)
--- NOTE | 2020-02-14 15:30 | NUR ---
ADMINISTERED 40 MEQ K RIDER WITH LIDOCAINE FOR POTASSIUM LEVEL 3.1, EDUCATION PROVIDED. PATIENT TOLERATED WELL. O2 SAT 85% WITH 15L NRB. INSTRUCTED THE PATIENT TO TAKE DEEP BREATHE. O2 SAT INCREASED TO 89%. ENCOURAGED PATIENT TO TAKE DEEP BREATH. SAFETY MEASURES IN PLACE, CALL LIGHT WITHIN REACH. WILL CONTINUE TO MONITOR.
--- NOTE | 2020-02-14 16:02 | NUR ---
FOUND PATIENT'S O2 SAT SUPER LOW, 22%. OFF OXYGEN AND SHALLOW BREATHING. SKIN COLOR TURNED PURPLE. CALLED RAPID RESPONSE. PUT BACK OF THE NRB. VITAL SIGNS CHECKED. SBP 150S. HR 130S. O2 SAT GOT BACK TO 87%, AND PATIENT GOT BACK OF THE CONSCIOUSNESS. PATIENT REFUSED INTUBATION AT THIS TIME. RESTRAIN GIVEN FOR PREVENT TAKING OFF THE OXYGEN. WILL CLOSELY TO MONITOR THE PATIENT.
--- NOTE | 2020-02-14 16:13 | NUR ---
RESPONDED TO PATIENTS ROOM FOR A RAPID RESPONSE. PATIENT IS ON NON-REBREATHER. PATIENT IS ALERT ORIENTED AND [place] SPEAKING. PATIENTS IS ON FIO2 100 NRB. PATIENTS SPO2 SLOWLY IMPROVED TO SPO2 85 HEART RATE 110BPM. PATIENT IS SPEAKING AND COMMUNICATING TO RN. SPOKE TO DR. ASHTON REGARDING PATIENT CONDITION DURING RAPID RESPONSE BUT PATIENTS STATUS IMPROVED AND PATIENT DID NOT WANT TO BE INTUBATED AT THIS TIME. RN AND MEDICAL STAFF WILL CLOSELY MONITOR PATIENT AND IF HER STATUS DECLINES WE WILL NOTIFY DOCTOR. CHARGE NURSE AND RN AWARE AND NOTIFIED.
--- NOTE | 2020-02-14 16:42 | NUR ---
CHECKED PATIENT, O2 SAT 91% WITH 15L NRB. FEED PATIENT WITH WATER. EXPLAINED TO THE PATIENT IF THE 15L NRB NOT GOING TO WORK GOOD ENOUGH, SHE MAY NEED INTUBATION. PATIENT STATED THAT SHE DOES NOT WANT GET THE INTUBATION. ENCOURAGED THE PATIENT TO RELAX AND TAKE DEEP BREATHE. WILL CONTINUE TO MONITOR.
[2020-02-14] MEDS: REMDESIVIR (EUA) 100 MG in NACL 0.9% 100 ML IV SCH ×3 (17:59→21:20)
--- NOTE | 2020-02-14 18:03 | NUR ---
FEED PATIENT WITH WATER. PATIENT'2 O2 DESAT DRAMATICALLY TO 77% WHEN FEEDING THE WATER. REAPPLIED THE OXYGEN. O2 SAT INCREASED BACK TO 88% IN ABOUT 3-4 MINS. HR 89. WILL CONTINUE TO MONITOR.
--- NOTE | 2020-02-14 18:23 | NUR ---
O2 SAT 88% WITH 15L NRB. HR 91. WILL CONTINUE TO MONITOR.
--- NOTE | 2020-02-14 18:30 | NUR ---
IV K RIDER STILL INFUSING. REMDESIVIR NOT BEEN GIVEN.
--- NOTE | 2020-02-14 19:30 | NUR ---
RECEIVED ENDORSEMENT FROM GEE ISLAS. WE WENT TO PT ROOM, PT O2 SAT WAS 36%, ROSHAN PUT BACK THE NRM, CALLED RT, LABORED BREATHING NOTED, RT CAME IN IMMEDIATELY. INFORMED DR. ASHTON ON PT CONDITION AT 194, SAID TO PUT PATIENT ON BIPAP BECAUSE PT WAS REFUSING TO BE INTUBATED THIS MORNING, STILL PT REFUSED TO BE INTUBATED UP TO NOW, ALSO, IS OK TO CHECK THE ABG AND TO TRANSFER TO ICU. PT O2 SAT WENT UP TO 86% AT 1999. Nakul.Aliyah RG CAME IN TO CHECK PT AT 2009, E.R. DOCTOR SAID TO ASK THE OTHER FAMILY IF THEY WANT TO CONTINUE W/ INTUBATION WHEN THE CONDITION NECESSITATES.
--- NOTE | 2020-02-14 20:00 | NUR ---
EKG GIVEN BY THE ARMORED CABLE MACHINE OPERATOR TO JOANN VITICULTURIST.
--- NOTE | 2020-02-14 20:15 | NUR ---
SPOKE TO OSWALDO ( OF PATIENT) IN THE LOBBY, INFORMED HIM OF PATIENT CONDITION. ASKED HIM THAT IF THE TIME COMES WHEN PATIENT NEEDS TO BE INTUBATED, WILL HE BE OK WITH IT? STATES TO DO EVERYTHING LIKE INTUBATE PATIENT WHEN NEEDED AND DO EVERYTHING TO HELP PT. ALSO, INFORMED THE THAT I WILL TRANSFER THE PT TO ICU TO CLOSELY MONITOR THE PATIENT. VERBALIZED UNDERSTANDING. ANSWERED ALL QUESTIONS.
--- NOTE | 2020-02-14 20:30 | NUR ---
INFORMED THE R.T THAT IS OK W/ INTUBATION AND TO DO EVERYTHING TO HELP THE PATIENT. WORKING ON TRANSFERRING THE PATIENT AT THIS TIME. O2 SAT FLUCTUATING AT 84%-86%, CONTINUE ON NRM AT 15L. CALL LIGHT WITHIN REACH.
--- NOTE | 2020-02-14 21:00 | NUR ---
TRANSFERRED PT TO ICU, PT ON PORTABLE O2 AT 15L VIA NRM, SURGICAL MASK ON WHILE TRANSFER, NO DISTRESS, NO SOB, PORTABLE TELE MONITOR ATTACHED. PEREZ, RN MUMPS DEVELOPER HELPED W/ THE TRANSFER, ALL BELONGINGS GIVEN W/ THE PT AND ALL PT MEDS WELL, WHEELCHAIR OF PT GIVEN TO ICU. ENDORSEMENT GIVEN TO AUTHORIZER. TRANSFERRED SAFELY TO ICU BED. DROPLET PRECAUTION OBSERVED.
--- NOTE | 2020-02-14 21:30 | NUR ---
RECEIVED PT FROM WARP KNIT OPERATOR STEPHANIE, PT ON 15L NONREBREATHER, DIMINISHED LUNG SOUNDS, S1 AND S2 HEART SOUNDS HEARD, PULSES PALPABLE UPPER AND LOWER EXTREMITIES, BOWEL SOUNDS ACTIVE, PT INSTRUCTED ON IMPORTANCE OF KEEPING NONREBREATHER IN PLACE, PT STATES UNDERSTANDING AND SAYS SHE WILL LEAVE IT ALONE, SAFETY PROTOCOLS IN PLACE VSS WILL CONTINUE TO MONITOR PT.
[2020-02-14] MEDS ORDERED: cefTRIAXone 1,000 MG VIAL ONE (22:10)
--- NOTE | 2020-02-14 23:00 | NUR ---
PT REMOVING NONREBREATHER, WITH O2 SATURATION LOWERING INTO 50'S, PT STARTING TO BECOME CONFUSED AND UNABLE TO FOLLOW COMMANDS, ATTEMPTED TO REINFORCE IMPORTANCE OF LEAVING NONREBREATHER IN PLACE, PT UNABLE TO COMMUNICATE CLEARLY, AND CONTINUES TO PULL OF NONREBREATHER, NOTIFIED RT HINDUISM OF PT RESPIRATORY STATUS.
[2020-02-15] VITALS (95 sets, daily range): BP systolic 66–216; BP diastolic 39–111
--- NOTE | 2020-02-15 00:10 | NUR ---
PT ATTEMPTING TO REMOVE NONREBREATHER, AND PULLING AT MASK ATTEMPTED REORIENTATION, BUT PT UNABLE TO COMPREHEND TEACHING, PT NOW ONLY [place] CITIZEN SPEAKING AFTER BEING ABLE TO VOCALIZE UNDERSTANDING IN [place] AND REPEAT TEACHING BACK AND MAKE NEEDS UNDERSTOOD IN [place] AT TIME OF TRANSFER, WILL CONTINUE TO MONITOR PT
[2020-02-15] MEDS: Z-GUARD PASTE TP SCH ×2 (01:19→13:37)
[2020-02-15] MEDS: NACL 0.9% 1,000 ML IV SCH ×3 (02:10→23:18)
--- NOTE | 2020-02-15 02:10 | NUR ---
PT TOOK OFF HFNC PRONG AND DESATURATED. PLACED PT BACK ON HFNC AND PT WAS NOT UNCOOPERATIVE. DR. SWANN WAS INFORMED. WILL CONTINUE TO MONITOR PT.
--- NOTE | 2020-02-15 02:25 | NUR ---
PT PLACED ON HFNC 40L 100%, SATURATION WAS IN THE MID 70S. SATURATION NOW IN THE HIGH 80S
--- NOTE | 2020-02-15 03:20 | NUR ---
DR SWANN CAME TO BEDSIDE TO ASSESSED PT. DOCTOR ORDERED TO PLACED PT ON BiPAP. PT WAS PLACED ON BiPAP AND WAS UNCOOPERATIVE. DOCTOR SWANN WAS INFORMED. DOCTOR CAME TO BEDSIDE TO ASSESSED PT AGAIN.AT APPROXIMATELY 0300, DR. SWANN SUCCESSFULLY INTUBATED PT WITH EET SIZE 7.5 AND SECURED WITH ANCHOR-FAST @ 23cm @ THE TEETH. VENT SETTINGS AC/VC RR 20, VT 400, PEEP 8, FiO2 100% WITH SPO2 94%. VENT PLUGGED IN RED OUTLET AND ALARMS SET AND AUDIBLE. WILL CONTINUE TO MONITOR PT.
[2020-02-15] MEDS ORDERED: COMMUNICATION ORDER MC PRN (03:40)
--- NOTE | 2020-02-15 03:50 | NUR ---
PT WAS PLACED ONTO BIPAP AT ROUGHLY 0310 PT BEGAN STRUGGLING, WITH A RR IN THE 40S AND BEGAN STRUGGLING TRYING TO REMOVE THE BIPAP AND PREVENTING US FROM PLACING IT ON HER , RT NEEMA WAS AT BEDSIDE, ER NOTIFIED AND INFORMED HIM OF THE SITUATION, DR. SWANN CAME TO ASSESS THE PT AND DETERMINED IT WAS IN PT BEST INTEREST TO INTUBATE
--- NOTE | 2020-02-15 03:52 | NUR ---
SPOKE WITH DR. WHEELER AND UPDATED ON PT STATUS, ORDERS RECEIVED
[2020-02-15] MEDS ORDERED: fentaNYL citrate 1 MG in NACL 0.9% 80 ML IV PRN (03:55)
[2020-02-15] MEDS ORDERED: PROPOFOL 1000 MG/100 ML PREMIX 100 ML IV PRN (04:00)
[2020-02-15] MEDS ORDERED: NOREPINEPHRINE 8 MG in DEXTROSE 5% 250 ML IV PRN ×2 (04:00→11:15)
--- NOTE | 2020-02-15 04:15 | NUR ---
LEAVE MESSAGE TO PICCLINE RN, WILL ENDORSE TO INCOMING SHIFT TO FOLLOW UP.
[2020-02-15] MEDS ORDERED: NACL 0.9% IV SCH (05:45)
[2020-02-15] MEDS ORDERED: DEXMEDETOMIDINE HCL IV SCH (05:45)
[2020-02-15] MEDS ORDERED: fentaNYL citrate 0.05 MG/ML VIAL ONE (05:57)
--- NOTE | 2020-02-15 06:00 | NUR ---
OGT INSERTED, HOLDEN CATHETER INSERTED, CONSENT FOR PICC LINE OBTAINED (SEE CONSENT FORM), SAFETY PROTOCOLS IN PLACE WILL CONTINUE TO MONITOR PT
[2020-02-15] MEDS: fentaNYL citrate 1 MG in NACL 0.9% 80 ML IV PRN (06:15)
[2020-02-15 06:51] LABS: BASOPHILS % (AUTO) 0.1 % (0.0-2.0); EOSINOPHILS % (AUTO) 0.1 % (0.0-4.0); HEMATOCRIT 39.1 % (36-48); HEMOGLOBIN 12.4 g/dL (12.0-16.0); LYMPHOCYTES # (AUTO) 3.1 K/uL (2.5-16.5); MEAN CORPUSCULAR HEMOGLOBIN 31 pg (27-31); MEAN CORPUSCULAR HGB CONC 32 g/dL (33-37); MEAN CORPUSCULAR VOLUME 98.4 fL (80-94); MONOCYTES # (AUTO) 1.1 K/uL (0.8-1.0); MONOCYTES % (AUTO) 5.2 % (1.7-9.3); NEUTROPHILS # (AUTO) 16.6 K/uL (1.8-7.7); NEUTROPHILS % (AUTO) 79.6 % (42.2-75.2); PLATELET COUNT (AUTO) 277 K/uL (140-450); RED BLOOD CELL COUNT(AUTO) 3.97 MIL/uL (4.20-5.40); RED CELL DISTRIBUTION WIDTH 16.7 % (11.6-13.7); WHITE BLOOD COUNT (AUTO) 20.8 K/uL (4.8-10.8)
[2020-02-15] MEDS: BLOOD GLUCOSE MONITORING 1 DEV DEV FS SCH ×4 (06:53→21:04)
--- NOTE | 2020-02-15 07:05 | NUR ---
RECEIVED REPORT FROM SOCIAL WORK PROFESSOR NURSE. PT IN BED. RASS -3, FLACC 0, RESPIRATIONS ARE EVEN AND UNLABORED. ETT TO VENT: AC/VC FIO2 100%, PEEP 8, RATE 20, TV 400. OGT INTACT AND PATENT. HOLDEN INTACT AND PATENT DRAINING CLEAR YELLOW URINE. WITH IV SITE LFA 20G AND LAC 20G. INFUSING NS AT 80CC/HR, PRECEDEX 0.3MCG, AND FENTANYL AT 0.5MCG.. ISOLATION PRECAUTION OBSERVED. SAFETY MEASURES IN PLACE. WILL CONTINUE TO MONITOR
[2020-02-15 07:14] LABS: ALBUMIN 2.4 g/dL (3.4-5.0); ANION GAP 16.7 (8-16); CARBON DIOXIDE 23.8 mmol/L (21-32); CREATININE 0.9 mg/dL (0.6-1.3); POTASSIUM 3.5 mmol/L (3.5-5.1); TOTAL BILIRUBIN 0.8 mg/dL (0.0-1.0)
[2020-02-15] MEDS: metFORMIN 500 MG TAB PO SCH (08:00)
--- NOTE | 2020-02-15 08:00 | NUR ---
RECEIVED ON A [employer] R860 VENTILATOR PLUGGED INTO RED OUTLET TOLERATING WELL WITHOUT ADVERSE REACTIONS NOTED TO AN ENDOTRACHEAL TUBE #7.5 SECURED AT 23cm TEETH/GUM LINE WITH AN ANCHOR FAST CUFF PRESSURE CHECKED NOTED LOC SEDATED RESTING COMFORTABLY NO EVIDENCE OF RESPIRATORY DISTRESS NOTED GOOD CHEST RISE AND AERATION THROUGHOUT BILATERAL LUNG JIN AIRWAY PATENT
--- NOTE | 2020-02-15 08:17 | NUR ---
PAGED DR. JENNIFER WHEELER [phone] TO REVIEW [id number] SAMPLE REPORT RETURN NUMBER [phone]
--- NOTE | 2020-02-15 08:27 | NUR ---
CALL BACK FROM DR. JENNIFER WHEELER REVIEWED [facility] SAMPLE REPORT NEW ORDER: TORBO INCREASE Vt TO 500ml INCREASE PEEP TO [id number] TITRATE FIO2 KEEP SATURATION GREATER THAN 92% [facility] AFTER 2 HOURS
--- NOTE | 2020-02-15 08:30 | NUR ---
[place]/RN NOTIFIED OF VENTILATOR CHANGES NOTED
[2020-02-15] MEDS ORDERED: KCL 20 MEQ/WATER INJ PREMIX 200 ML IV PRN (09:00)
[2020-02-15] MEDS: ZINC SULF 220 MG CAP PO SCH (09:00)
[2020-02-15] MEDS: ASCORBIC ACID 500 MG TAB PO SCH (09:00)
[2020-02-15] MEDS: ENOXAPARIN 60 MG/0.6 ML SYR SUBQ SCH ×2 (09:00→21:11)
[2020-02-15] MEDS: PANTOPRAZOLE 40 MG INJ VIAL IVP SCH (09:00)
--- NOTE | 2020-02-15 09:15 | NUR ---
OGT INTACT AND PATENT, NO RESIDUALS NOTED. DUE MORNING MEDS GIVEN ORDERED. TOLERATED MEDS WELL
--- NOTE | 2020-02-15 09:30 | NUR ---
THE HOUSE SUPP CAME AND SAID THE FAMILY WANT TO COME IN AND VISIT THE PT. IN FORM THE PATIENT DAUGHTER THAT WE NOT TAKE IN VISITOR DURING THIS PANDEMIC .WE WILL SEND THE VIDEO FOR THEM TO SEE IN THE LOBBY.
--- NOTE | 2020-02-15 10:00 | NUR ---
WITH EPISODES OF IRRITABILITY AND RESTLESSNESS, TITRATE PRECEDEX ORDERED
[2020-02-15] MEDS ORDERED: MIDAZOLAM MDV 50 MG in NACL 0.9% 40 ML IV PRN (10:25)
--- NOTE | 2020-02-15 11:00 | NUR ---
DR WHEELER CAME AND SEEN PT. ORDERED LEVOPHED PRN AND TO CHANGE SEDATION TO VERSED
--- NOTE | 2020-02-15 11:15 | NUR ---
REVIEWED ABG SAMPLE REPORT WITH DR. JENNIFER WHEELER INFORMED THAT THE DIAGNOSTIC/MONITOR SATURATION INDICATED 94% STATED "THAT'S FINE GO BY MONITOR SATURATION"
[2020-02-15] MEDS: ALBUTEROL SULFATE/IPRATROPIU 3 ML SOL IH SCH ×3 (11:35→19:43)
--- NOTE | 2020-02-15 11:35 | NUR ---
VERSED DRIP HANGED ORDERED TO KEEP RASS-3
--- NOTE | 2020-02-15 11:36 | NUR ---
IRRITABLE [place]/RN AWARE SEDATION CHANGED GOOD CHEST RISE ENDOTRACHEAL TUBE SUCTION FOR MODERATE THICK YELLOW WITH BLOOD TINGE SECRETIONS SPUTUM CULTURE OBTAINED FORWARDED TO LAB FOREMENTIONED RN NOTIFIED
[2020-02-15] MEDS: MIDAZOLAM IV PRN ×2 (11:50→17:50)
[2020-02-15] MEDS: NACL 0.9% IV PRN ×2 (11:50→17:50)
--- NOTE | 2020-02-15 12:50 | NUR ---
STARTED LEVOPHED DRIP ON 2MCG/MIN TO MAINTAIN SBP>90
[2020-02-15] MEDS: methylPREDNISolone SS 40 MG/ML VIAL IVP SCH ×2 (12:57→21:04)
--- NOTE | 2020-02-15 13:34 | NUR ---
SEDATED RESTING WELL NO EVIDENCE OF PULMONARY DISTRESS NOTED EQUAL CHESTY RISE GOOD AERATION THROUGHOUT BILATERAL LUNG JIN AIRWAY PATENT PICC LINE RN AT BEDSIDE
--- NOTE | 2020-02-15 15:52 | NUR ---
SEDATED STABLE NO DISTRESS NOTED EQUAL CHEST RISE GOOD AERATION THROUGHOUT BILATERAL LUNG JIN AIRWAY PATENT
--- NOTE | 2020-02-15 15:56 | NUR ---
RASS -3, FLACC 0, RESPIRATIONS ARE EVEN AND UNLABORED.
[2020-02-15] MEDS: INSULIN LISPRO SLIDING SCALE 100 UNITS/ML VIAL SUBQ PRN (16:59)
--- NOTE | 2020-02-15 17:09 | NUR ---
SEDATED RESTING WELL WITH NO APPAREN DISTRESS NOTED GOOD CHEST RISE ENDOTRACHEAL SUCTION FOR MODERATE SEMI THICK YELLOW WITH BLOOD TINGE SECRETIONS AIRWAY PATENT SATURATION 99% ON FIO2 OF 75% PEEP [id number] TITRATED FIO2 TO 70% [place]/RN NOTIFIED
--- NOTE | 2020-02-15 18:45 | NUR ---
RASS-3, NO APPARENT DISTRESS, RESPIRATIONS ARE EVEN AND UNLABORED
--- NOTE | 2020-02-15 19:40 | NUR ---
RECEIVED PT FROM DAYSHIFT RN PT DRY WEIGHT 58KG SEDATED TO RASS -3 ON FENTANYL, VERSED AND LEVOPHED 8MG/250ML, ETT TO VENT AC/VC FIO2 70% VT 500 RR 20 PEEP 10, PULSES PALPABLE UPPER AND LOWER EXTREMITIES, BOWEL SOUNDS ACTIVE, HOLDEN CATH IN PLACE DRAINING, NO SIGNS OF DISTRESS NOTED SAFETY PROTOCOLS IN PLACE WILL CONTINUE TO MONITOR PT
--- NOTE | 2020-02-15 19:44 | NUR ---
RECEIVED PATIENT FROM AM SHIFT. PATIENT WAS SEEN AND ASSESSED. PATIENT IS INTUBATED WITH ETT SIZE 7.5 AND SECURED WITH ANCHOR-FAST AT 23cm. PATIENT IS ON VENT SETTINGS: AC/PC RR 20, VT 500, PEEP 10, FiO2 70% WITH SPO2 OF 94%. VENT IS PLUGGED IN RED OUTLET. ALARMS SET AND AUDIBLE TO ENVIRONMENT. SUCTIONED SCANT AMOUNT OF CLEAR/WHITE THICK SECRETIONS FROM ETT. AIRWAY IS PATENT. AUSCULTATION REVEALS BILATERAL RALES BREATH SOUNDS. PATIENT IS IN NO APPARENT RESPIRATORY DISTRESS AT THIS TIME. SCHEDULE TX GIVEN ORDERED AND PT TOLERATED WELL WITH NO ADVERSE REACTION. WILL CONTINUE TO MONITOR PATIENT.
--- NOTE | 2020-02-15 21:10 | NUR ---
ALL PT MEDS GIVEN, ORAL CARE PROVIDED, AND PT REPOSITIONED IN BED, NO SIGNS OF DISTRESS NOTED WILL CONTINUE TO MONITOR PT
[2020-02-16] VITALS (104 sets, daily range): BP systolic 70–170; BP diastolic 26–81
--- NOTE | 2020-02-16 00:25 | NUR ---
ORAL CARE PROVIDED, PT REPOSITIONED IN BED, NO SIGNS OF DISTRESS NOTED WILL CONTINUE TO MONITOR
[2020-02-16] MEDS: Z-GUARD PASTE TP SCH ×2 (01:12→13:27)
[2020-02-16] MEDS: ALBUTEROL SULFATE/IPRATROPIU 3 ML SOL IH SCH ×4 (01:47→19:18)
[2020-02-16] MEDS: MIDAZOLAM IV PRN ×2 (04:40→13:08)
[2020-02-16] MEDS: NACL 0.9% IV PRN ×2 (04:40→13:08)
[2020-02-16] MEDS: methylPREDNISolone SS 40 MG/ML VIAL IVP SCH ×3 (05:05→21:03)
--- NOTE | 2020-02-16 05:10 | NUR ---
HOLDEN CARE PROVIDED, ORAL CARE PROVIDED, BED BATH GIVEN, NO SIGNS OF DISTRESS NOTED WILL CONTINUE TO MONITOR PT
--- NOTE | 2020-02-16 06:30 | NUR ---
TUBE FEEDING STARTED AT 10ML/HR, NO SIGNS OF DISTRESS NOTED WILL CONTINUE TO MONITOR PT
[2020-02-16 06:57] LABS: ALBUMIN 1.8 g/dL (3.4-5.0); ANION GAP 15.5 (8-16); CARBON DIOXIDE 22.9 mmol/L (21-32); POTASSIUM 3.4 mmol/L (3.5-5.1); TOTAL BILIRUBIN 0.6 mg/dL (0.0-1.0)
--- NOTE | 2020-02-16 07:30 | NUR ---
RECEIVED WINDOW SIDE REPORT FROM AUTH SPECIALIST NURSE. PT IN BED, AROUSABLE TO LIGHT PAIN, RASS -3 ETT TO VENT ACVC FIO2 100%, RR 18, PEEP 10. BREATHING EVEN AND UNLABORED, NO SIGNS OF ACUTE DISTRESS NOTED. OG TUBE TO FEEDING, GLUCERNA 1.2 RUNNING @ 10 ML/HR. ZULEMA SOFT WRIST RESTRAINS IN PLACE, NO SIGNS OF INJURY NOTED. HOLDEN DRAINING TO GRAVITY, CLEAR YELLOW URINE. CRISPIN PICC INFUSING MID[place]OLAM @ 10 MG/HR, FENTANYL @ 0.7 MCG/KG/HR, LEVOPHED @ 2 MCG/OZZY. L AC 20 CLEAN DRY AND INTACT, G, L FA 20 G CLEAN DRY AND INTACT. HOB 30 DEGREES, BED IN LOW POSITION. COLLECTION SPECIALIST IN PLACE. SAFETY MEASURES IN PLACE.
[2020-02-16 08:25] LABS: HEMOGLOBIN 10.3 g/dL (12.0-16.0); LYMPHOCYTES # (AUTO) 0.6 K/uL (2.5-16.5); LYMPHOCYTES % (AUTO) 6.2 % (20.5-51.1); MEAN CORPUSCULAR HEMOGLOBIN 32 pg (27-31); MEAN CORPUSCULAR HGB CONC 32 g/dL (33-37); MEAN CORPUSCULAR VOLUME 98.9 fL (80-94); MONOCYTES # (AUTO) 0.2 K/uL (0.8-1.0); MONOCYTES % (AUTO) 1.8 % (1.7-9.3); NEUTROPHILS # (AUTO) 8.8 K/uL (1.8-7.7); PLATELET COUNT (AUTO) 145 K/uL (140-450); RED BLOOD CELL COUNT(AUTO) 3.24 MIL/uL (4.20-5.40); RED CELL DISTRIBUTION WIDTH 16.5 % (11.6-13.7); WHITE BLOOD COUNT (AUTO) 9.5 K/uL (4.8-10.8)
[2020-02-16] MEDS: fentaNYL citrate - 50mL vial 2.5 MG in NACL 0.9% 200 ML IV PRN (09:20)
[2020-02-16] MEDS: ASCORBIC ACID 500 MG TAB PO SCH (09:21)
[2020-02-16] MEDS: ENOXAPARIN 60 MG/0.6 ML SYR SUBQ SCH ×2 (09:21→21:05)
[2020-02-16] MEDS: ZINC SULF 220 MG CAP PO SCH (09:21)
[2020-02-16] MEDS: PANTOPRAZOLE 40 MG INJ VIAL IVP SCH (09:21)
[2020-02-16] MEDS: BLOOD GLUCOSE MONITORING 1 DEV DEV FS SCH ×4 (09:40→21:03)
[2020-02-16] MEDS: INSULIN LISPRO SLIDING SCALE 100 UNITS/ML VIAL SUBQ PRN ×4 (09:42→21:05)
--- NOTE | 2020-02-16 09:43 | NUR ---
ADMINISTERED AM MEDS PER MD ORDER. BLOOD GLUCOSE CHECKED, 337, COVERED WITH 10 UNITS HUMALOG. MED EDUCATION PROVIDED, REIMBURSEMENT NEEDED. OG TUBE RESIDUAL 10ML, FLUSHED BEFORE AND AFTER MEDS. MORNING HYGIENE PROVIDED, CHANGED ALL DIRTY LINEN AND OFFLOADED PRESSURE WITH PILLOWS, ORAL CARE PROVIDED. HGC BATH AND CATHETER CARE PROVIDED. RELEASED RESTRAINTS FOR ROM EXERCISES, NO SIGNS OF INJURIES NOTED. PT TOLERATED WELL, NO SIGNS OF ACUTE DISTRESS NOTED. HOB 30 DEGREES, BED IN LOW POSITION, RESTRAINS BACK IN PLACE. COUPON AND BOND COLLECTION CLERK IN PLACE. SAFETY MEASURES IN PLACE.
--- NOTE | 2020-02-16 10:15 | NUR ---
DR FONTENOT IS ROUNDING ON PATIENT. DR FONTENOT ORDERS TO STOP IVF AT THIS TIME. AND RECEIVED VERBAL FOR ALBUMIN 5% BID Q12H FOR 2 DOSES ONLY AND PER DR FONTENOT, IF PATIENT IS NOT GOING TO PRONE, CHANGE TUBE FEEDING WATER FLUSH TO 300 ML/Q4 HR. IF PATIENT IS GOING TO BE PRONING, CHANGE IVF TO D5W AT 100 ML/HR. WILL STOP IVF FOR NOW AND INPUT ORDERS ACCORDINGLY.
--- NOTE | 2020-02-16 10:20 | NUR ---
SPO2 79%. PEEP INCREASED TO 12 cmH2O PT ALREADY ON 100% FIO2. SPO2 INCREASED TO 90%. NURSE MADE AWARE.
[2020-02-16] MEDS: ALBUMIN HUMAN 5 % 250 ML IV SCH ×2 (10:53→23:24)
--- NOTE | 2020-02-16 10:54 | NUR ---
ADMINISTERED ALBUMIN PER MD ORDER. MED EDUCATION PROVIDED, REINFORCEMENT NEEDED.
--- NOTE | 2020-02-16 11:50 | NUR ---
BLOOD GLUCOSE CHECKED, 300, INSULIN COVERAGE PROVIDER PER SLIDING SCALE. MED EDUCATION PROVIDED, REINFORCEMENT NEEDED.
--- NOTE | 2020-02-16 11:51 | NUR ---
CALLED DR. WHEELER REGARDING PT DESATURATING TO 80S, ON ETT TO VENT FIO2 100%, PEEP 12. PER DR TO ORDER STAT CXR AND ABG. WILL PUT IN ORDERS AND CONTINUE WITH ORDERS.
--- NOTE | 2020-02-16 12:18 | NUR ---
ABG RESULTS GIVEN TO PHYSICIAN STATES TO INCREASE PEEP TO [id number] AND FOR PT TO BE PLACED IN PRONE POSITION. CHARGE NURSE AWARE. WILL CONTINUE TO MONITOR.
--- NOTE | 2020-02-16 13:05 | NUR ---
RECEIVED CALL FROM DAUGHTER STEPHANIEDAVE, UPDATED ROBE WITH PATIENT'S CURRENT CONDITION, ANSWERED ALL MARIO'S QUESTION. OBTAINED CONSENT WITH RIDE ASSEMBLY SUPERVISORGEE PATEL FROM MARIO FOR PLASMA TRANSFUSION, MARIO WAS AWARE AND AGREED FOR TRANSFUSION.
[2020-02-16] MEDS ORDERED: FUROSEMIDE 40 MG/4 ML VIAL IVP SCH (13:13)
--- NOTE | 2020-02-16 14:10 | NUR ---
PT PLACED IN PRONE POSITION WITH RT AID, PILLOWS USED TO OFFLOADED PRESSURE, OPTIFOAM USED ON CHIN AND CHEEK FOR SKIN PROTECTIVE. SOFT RESTRAINTS SECURED BILATERALLY, OGT FEEDING HELD. PT RHYTHM CHANGED TO SVT, NOTIFED, ADENOCARD 6 MG IVP WAS ORDERED. CORN PRESS OPERATOR IN PLACE.
[2020-02-16] MEDS ORDERED: ADENOSINE 6 MG/2 ML VIAL IVP ONE ×2 (14:20)
--- NOTE | 2020-02-16 14:20 | NUR ---
ADENOSINE GIVEN VIA IVP PER MD ORDER AT THIS TIME.
--- NOTE | 2020-02-16 14:25 | NUR ---
DR FERGUSON NOTIFIED AND DR FERGUSON IS AT ICU.
[2020-02-16] MEDS ORDERED: DIGOXIN 0.25 MG/ML AMP IV SCH (14:40)
[2020-02-16] MEDS ORDERED: METOPROLOL 5 MG/5 ML VIAL IVP SCH (14:41)
[2020-02-16] MEDS ORDERED: METOPROLOL 5 MG/5 ML VIAL ONE (14:41)
[2020-02-16] MEDS ORDERED: PHENYLEPHRINE 10 MG in NACL 0.9% 250 ML IV PRN (14:50)
[2020-02-16] MEDS ORDERED: AMIODARONE 150 MG in DEXTROSE 5% 100 ML IV SCH (14:59)
[2020-02-16] MEDS: DEXTROSE 5% 1,000 ML IV SCH (15:33)
[2020-02-16] MEDS ORDERED: PHENYLEPHRINE 40 MG in NACL 0.9% 250 ML IV PRN (15:35)
--- NOTE | 2020-02-16 15:39 | NUR ---
STARTED AMIODARONE LOADING DOSE AND CHANGED IVF PER MD ORDER.
[2020-02-16] MEDS: AMIODARONE 450 MG in DEXTROSE 5% 250 ML IV SCH (15:53)
--- NOTE | 2020-02-16 15:58 | NUR ---
STARTED AMIODARONE DRIP AT 1 MG/MIN FOR 6 HOURS AND STARTED NEOSYNEPHRINE AT 50 MCG/MIN. WILL MONITOR VITAL SIGNS CLOSELY, RESPIRATION EVEN AND UNLABORED ON PRONE POSITION, AC/VC FIO2 AT 100%, SPO2 100%, FLACC 0. COAT JOINER LOCKSTITCH IN PLACE. SAFETY MEASURES IN PLACE.
--- NOTE | 2020-02-16 16:02 | NUR ---
POTASSIUM 3.4 FROM AM LAB, REPLENISHED WITH 20 MEQ POTASSIUM CHLORIDE VIA IV.
--- NOTE | 2020-02-16 16:40 | NUR ---
BLOOD GLUCOSE CHECKED, 163, PT ON INSULIN DRIP
--- NOTE | 2020-02-16 17:15 | NUR ---
PT REMAINS ON DOCUMENTED VENT SETTINGS. PT IN PRONE POSITION TOLERATING WELL. ETT IS SECURE WITH A PATENT AIRWAY. VENT ALARMS ON AND FUNCTIONING.
[2020-02-16] MEDS: REMDESIVIR (EUA) 100 MG in NACL 0.9% 100 ML IV SCH (18:21)
--- NOTE | 2020-02-16 19:25 | NUR ---
ENDORSED PT TO CORROSION CONTROL ENGINEER NURSE FOR CONTINUITY OF CARE. PT IN STABLE CONDITION.
--- NOTE | 2020-02-16 19:26 | NUR ---
RECEIVED ENDORSEMENT FROM DAY SHIFT RB FOR CONTINUITY OF CARE. PT IN PRONE POSITION IN BED, AROUSABLE TO LIGHT PAIN, RASS -3 ETT TO VENT ACVC FIO2 90%, RR 20, PEEP 15. BREATHING EVEN AND UNLABORED, NO SIGNS OF ACUTE DISTRESS NOTED. OG TUBE TO FEEDING, GLUCERNA 1.2 RUNNING @ 10 ML/HR. ZULEMA SOFT WRIST RESTRAINS IN PLACE, NO SIGNS OF INJURY NOTED. HOLDEN DRAINING TO GRAVITY, CLEAR YELLOW URINE. CRISPIN PICC INFUSING VERSED AT 10 MG/HR, FENTANYL @ 2 MCG/KG/HR, D5 NS @ 100MLS/HR, AMIODARONE AT 1 MG/MIN. SKIN CLEAN DRY AND INTACT, BED IN LOW POSITION. COPY READER IN PLACE. SAFETY MEASURES IN PLACE
--- NOTE | 2020-02-16 19:48 | NUR ---
RECEIVED PATIENT FROM DAY SHIFT ON AC 20,500, PEEP 15,90%. VENT PLUGGED INTO RED OUTLET. BMV AT BEDSIDE. ETT SECURED. ALARMS SET. NO RESPIRATORY DISTRESS NOTED. PATIENT IS IN PRONE POSITION. NO RESPIRATORY DISTRESS NOTED. TX GIVEN. WILL CONTINUE TO MONITOR
--- NOTE | 2020-02-16 21:10 | NUR ---
ADMINISTERED 2100H MEDICATIONS PER ORDERED, PT BLOOD GLUCOSE 300, ADMINISTERED 6 UNITS HUMALOG PER PROTOCOL
--- NOTE | 2020-02-16 21:35 | NUR ---
STARTED INFUSING FROZEN PLASMA, PT AFEBRILE AND IN STABLE CONDITION, PT SHOWING NO SIGNS OF ACUTE DISTRESS, WILL CONTINUE TO MONITOR
--- NOTE | 2020-02-16 22:45 | NUR ---
FROZEN PLASMA INFUSION ENDED, PT SHOWING NO SIGNS OF REACTION, AFEBRILE AND VITALS IN STABLE CONDITION, PT SHOWING NO SIGNS OF ACUTE DISTRESS
[2020-02-17] VITALS (107 sets, daily range): BP systolic 106–140; BP diastolic 43–69
[2020-02-17] MEDS: NACL 0.9% IV PRN ×3 (00:12→21:09)
[2020-02-17] MEDS: MIDAZOLAM IV PRN ×3 (00:12→21:09)
--- NOTE | 2020-02-17 00:26 | NUR ---
HUNG NEW BOTTLE OF VERSED @ 10MG/HR
[2020-02-17] MEDS: ALBUTEROL SULFATE/IPRATROPIU 3 ML SOL IH SCH ×4 (00:30→19:43)
[2020-02-17] MEDS: Z-GUARD PASTE TP SCH ×2 (01:26→13:48)
[2020-02-17] MEDS: AMIODARONE 450 MG in DEXTROSE 5% 250 ML IV SCH (01:42)
--- NOTE | 2020-02-17 03:10 | NUR ---
PT STILL IN PRONE POSITION, AFEBRILE, SHOWING NO SIGNS OF ACUTE DISTRESS, SAFETY MEASURES IN PLACE, WILL CONTINUE TO MONITOR
[2020-02-17] MEDS: methylPREDNISolone SS 40 MG/ML VIAL IVP SCH ×3 (04:19→20:26)
--- NOTE | 2020-02-17 05:05 | NUR ---
PATIENT PLACED BACK IN SUPINE POSITION. AIRWAY REMAIN PATENT. ETT SECURED. WILL CONT TO MONITOR
--- NOTE | 2020-02-17 05:10 | NUR ---
POSITIONED PT TO SUPINE, ORAL CARE AND SUCTIONING PERFORMED, MORNING CARE GIVEN, PT SHOWING NO SIGNS OF ACUTE DISTRESS, SAFETY MEASURES IN PLACE, WILL CONTINUE TO MONITOR
[2020-02-17 06:09] LABS: ALBUMIN 2.3 g/dL (3.4-5.0); ANION GAP 14.8 (8-16); CARBON DIOXIDE 22.7 mmol/L (21-32); CREATININE 1.3 mg/dL (0.6-1.3); POTASSIUM 3.5 mmol/L (3.5-5.1); TOTAL BILIRUBIN 0.6 mg/dL (0.0-1.0)
[2020-02-17] MEDS: BLOOD GLUCOSE MONITORING 1 DEV DEV FS SCH ×4 (06:39→21:05)
[2020-02-17] MEDS: INSULIN LISPRO SLIDING SCALE 100 UNITS/ML VIAL SUBQ PRN ×4 (06:39→21:07)
--- NOTE | 2020-02-17 06:51 | NUR ---
BLOOD GLUCOSE 349, ADMINISTERED 8 UNITS OF HUMALOG PER PROTOCOL
--- NOTE | 2020-02-17 07:08 | NUR ---
RECEIVED INTUBATED PT WITH 7.5 ETT SECURED @23 TEETH/GUM ON VENT. SETTINGS A/C VC 20, VT 500, PEEP [id number] AND FIO2 TITRATED TO 85%. PT SEDATED NOT IN ANY DISTRESS AT THIS TIME. ETT IS SECURE WITH A PATENT AIRWAY. VENT IS PLUGGED INTO A RED OUTLET WITH ALARMS ON AND FUNCTIONING. WILL CONTINUE TO MONITOR.
--- NOTE | 2020-02-17 07:11 | NUR ---
ENDORSED TO DAY SHIFT RN FOR CONTINUITY OF CARE, PT IN STABLE CONDITION
--- NOTE | 2020-02-17 07:15 | NUR ---
HANDOFF RECEIVED FROM MENTAL TELEPATHIST RN. PT IS SEDATED RASS -3. PT IS ETT TO VENT ACVC WITH FIO2 OF 90%, R 20, PEEP 15. PT IS SR ON THE MONITOR AT THIS TIME. PT IS OG TUBE WITH FEEDING, GLUCERNA 1.2 RUNNING AT 10 ML/HR (GOAL IS 40 ML/HR) WITH FWF OF 300 Q HR. PT HAS ACCESS AT CRISPIN PICC LINE. D5 IS RUNNING AT 100 ML/HR, VERSED AT 10 MG/HR, AMIODARONE AT 0.5 MG/MIN, AND FENTANYL AT 2 MCG/KG/HR. PT HAS HOLDEN CATHETER IN PLACE. HOB IS 30 DEG, WITH BED IN LOW, LOCKED POSITION. WILL CONTINUE TO MONITOR.
[2020-02-17] MEDS: DEXTROSE 5% 1,000 ML IV SCH (07:23)
[2020-02-17 08:26] LABS: BASOPHILS % (AUTO) 0.2 % (0.0-2.0); HEMATOCRIT 27.4 % (36-48); HEMOGLOBIN 8.8 g/dL (12.0-16.0); LYMPHOCYTES # (AUTO) 0.4 K/uL (2.5-16.5); LYMPHOCYTES % (AUTO) 3.8 % (20.5-51.1); MEAN CORPUSCULAR HEMOGLOBIN 32 pg (27-31); MEAN CORPUSCULAR HGB CONC 32 g/dL (33-37); MEAN CORPUSCULAR VOLUME 98.8 fL (80-94); MONOCYTES # (AUTO) 0.2 K/uL (0.8-1.0); MONOCYTES % (AUTO) 2.2 % (1.7-9.3); NEUTROPHILS # (AUTO) 9.4 K/uL (1.8-7.7); NEUTROPHILS % (AUTO) 93.8 % (42.2-75.2); PLATELET COUNT (AUTO) 124 K/uL (140-450); RED BLOOD CELL COUNT(AUTO) 2.77 MIL/uL (4.20-5.40); RED CELL DISTRIBUTION WIDTH 16.6 % (11.6-13.7)
[2020-02-17] MEDS: ENOXAPARIN 60 MG/0.6 ML SYR SUBQ SCH ×2 (08:57→20:28)
[2020-02-17] MEDS: PANTOPRAZOLE 40 MG INJ VIAL IVP SCH (08:57)
[2020-02-17] MEDS: ZINC SULF 220 MG CAP PO SCH (08:57)
[2020-02-17] MEDS: ASCORBIC ACID 500 MG TAB PO SCH (08:57)
--- NOTE | 2020-02-17 09:45 | NUR ---
MEDICATIONS ADMINISTERED PER ORDER, PT TOLERATED WELL. 70 ML RESIDUAL FROM OG TUBE. VAP ORAL CARE, CHG BATH, AND HOLDEN CARE PROVIDED. TEMPERATURE 96.6 AXILLARY. WILL CONTINUE TO MONITOR.
[2020-02-17] MEDS ORDERED: DEXT 5% / NACL 0.45% 1,000 ML IV SCH (10:05)
[2020-02-17] MEDS: fentaNYL citrate - 50mL vial 2.5 MG in NACL 0.9% 200 ML IV PRN (10:14)
--- NOTE | 2020-02-17 11:50 | NUR ---
BS 444, DR. GONZALEZ PAGED. DR. GONZALEZ ADVISED TO SPEAK TO NEPHRO (DR. BARON) BEFORE CHANGING FLUID ORDERS. VAP ORAL CARE PROVIDED. PT REPOSITIONED.
--- NOTE | 2020-02-17 12:03 | NUR ---
DR. BRAON PAGED AND ORDERS RECEIVED TO CHANGE FLUIDS TO 1/2 NS
[2020-02-17] MEDS: NACL 0.45% 1,000 ML IV SCH (13:04)
--- NOTE | 2020-02-17 16:00 | NUR ---
DR. MAYORGA TO SEE PT.
--- NOTE | 2020-02-17 16:05 | NUR ---
DR. MAYORGA ALTERED VENT SETTINGS AT BEDSIDE. PT IS NOW ACVC WITH FIO2 60%, VT 350, PEEP 15, R 20. PT IS SATTING 94%. RT SHALINI IRBY. WILL CONTINUE TO MONITOR.
--- NOTE | 2020-02-17 16:22 | NUR ---
YARN FINISHER MADE CHANGES TO VENT SETTINGS A/C VC 20, VT 350, PEEP 15 AND FIO2 60%. WILL CONTINUE TO MONITOR.
--- NOTE | 2020-02-17 16:55 | NUR ---
ABG RESULTS GIVEN TO NO NEW VENT CHANGES ORDERED BY PHYSICIAN. WILL CONTINUE TO MONITOR.
--- NOTE | 2020-02-17 17:30 | NUR ---
BS 363, 10 UNITS OF INSULIN ADMINISTERED. TEMPERATURE 97.2 AXILLARY.
--- NOTE | 2020-02-17 19:24 | NUR ---
HANDOFF GIVEN TO SHIFT STACKER RN FOR CONTINUITY OF CARE
--- NOTE | 2020-02-17 19:25 | NUR ---
RECEIVED ENDORSEMENT FROM DAY SHIFT RB FOR CONTINUITY OF CARE. PT IN PRONE POSITION IN BED, AROUSABLE TO LIGHT PAIN, RASS -3, ETT TO VENT ACVC FIO2 60% RATE 20 PEEP 15. BREATHING EVEN AND UNLABORED, NO SIGNS OF ACUTE DISTRESS NOTED. OG TUBE TO FEEDING HELD, NO SIGNS OF INJURY NOTED. HOLDEN DRAINING TO GRAVITY, CLEAR YELLOW URINE. CRISPIN PICC INFUSING VERSED AT 10 MG/HR, HALF NS @ 75MLS/HR. SKIN CLEAN DRY AND INTACT, BED IN LOW POSITION. DIRECTOR OF ANESTHESIA SERVICES IN PLACE. SAFETY MEASURES IN PLACE
--- NOTE | 2020-02-17 19:43 | NUR ---
RECEIVED PATIENT FROM DAY SHIFT ON AC 20,350, PEEP 15,60%. VENT PLUGGED INTO RED OUTLET. BMV AT BEDSIDE. ETT SECURED. ALARMS SET. NO RESPIRATORY DISTRESS NOTED. PATIENT IS IN PRONE POSITION. NO RESPIRATORY DISTRESS NOTED. TX GIVEN. SX SCANT AMOUNT OF THIN YELLOW SECRETION.WILL CONTINUE TO MONITOR
[2020-02-17] MEDS: AMIODARONE 200 MG TAB PO SCH (20:27)
--- NOTE | 2020-02-17 21:15 | NUR ---
NON ADMINISTERED LOVENOX D/T PLATELET 124 HGB 8.8 HCT 27.4
--- NOTE | 2020-02-17 21:15 | NUR ---
ADMINISTERED 2100H MEDICATIONS PER ORDERED, BLOOD GLUCOSE 331, ADMINISTERED 8 UNITS HUMALOG PER PROTOCOL, PT AFEBRILE, SHOWING NO SIGNS OF ACUTE DISTRESS, SAFETY MEASURES IN PLACE
--- NOTE | 2020-02-17 23:50 | NUR ---
PT IN PRONE POSITION, ORAL CARE AND SUCTIONING PERFORMED, PT AFEBRILE, SHOWING NO SIGNS OF ACUTE DISTRESS, SAFETY MEASURES IN PLACE, WILL CONTINUE TO MONITOR
[2020-02-18] VITALS (106 sets, daily range): BP systolic 97–146; BP diastolic 48–74
[2020-02-18] MEDS: ALBUTEROL SULFATE/IPRATROPIU 3 ML SOL IH SCH ×4 (00:21→19:50)
[2020-02-18] MEDS: Z-GUARD PASTE TP SCH ×2 (00:30→12:22)
--- NOTE | 2020-02-18 01:45 | NUR ---
ORAL CARE AND SUCTIONING PERFORMED, PT AFEBRILE, SHOWING NO SIGNS OF ACUTE DISTRESS, SAFETY MEASURES IN PLACE, WILL CONTINUE TO MONITOR
[2020-02-18] MEDS: NACL 0.45% 1,000 ML IV SCH (02:53)
--- NOTE | 2020-02-18 03:35 | NUR ---
ORAL CARE AND SUCTIONING PERFORMED, PT SHOWING NO SIGNS OF ACUTE DISTRESS
--- NOTE | 2020-02-18 05:11 | NUR ---
patient placed back in supine. ett remains secured. airway remains patent. cuff press checked. will cont to monitor
--- NOTE | 2020-02-18 05:15 | NUR ---
REPOSITIONED PT TO SUPINE POSITION, ORAL CARE AND SUCTIONING PERFORMED, MORNING CARE GIVEN
[2020-02-18] MEDS: fentaNYL citrate - 50mL vial 2.5 MG in NACL 0.9% 200 ML IV PRN (05:30)
[2020-02-18 06:24] LABS: BASOPHILS # (AUTO) 0.1 K/uL (0.00-0.22); BASOPHILS % (AUTO) 0.7 % (0.0-2.0); HEMATOCRIT 29.8 % (36-48); HEMOGLOBIN 9.4 g/dL (12.0-16.0); LYMPHOCYTES # (AUTO) 0.3 K/uL (2.5-16.5); LYMPHOCYTES % (AUTO) 1.9 % (20.5-51.1); MEAN CORPUSCULAR HEMOGLOBIN 32 pg (27-31); MEAN CORPUSCULAR HGB CONC 32 g/dL (33-37); MEAN CORPUSCULAR VOLUME 99.8 fL (80-94); MONOCYTES # (AUTO) 0.3 K/uL (0.8-1.0); MONOCYTES % (AUTO) 1.9 % (1.7-9.3); NEUTROPHILS # (AUTO) 13.1 K/uL (1.8-7.7); NEUTROPHILS % (AUTO) 95.5 % (42.2-75.2); PLATELET COUNT (AUTO) 105 K/uL (140-450); RED BLOOD CELL COUNT(AUTO) 2.99 MIL/uL (4.20-5.40); RED CELL DISTRIBUTION WIDTH 17.4 % (11.6-13.7); WHITE BLOOD COUNT (AUTO) 13.8 K/uL (4.8-10.8)
[2020-02-18 06:32] LABS: ALBUMIN 2.1 g/dL (3.4-5.0); ANION GAP 7.8 (8-16); CARBON DIOXIDE 24.3 mmol/L (21-32); CREATININE 1.8 mg/dL (0.6-1.3); POTASSIUM 4.1 mmol/L (3.5-5.1); TOTAL BILIRUBIN 0.4 mg/dL (0.0-1.0)
[2020-02-18] MEDS: BLOOD GLUCOSE MONITORING 1 DEV DEV FS SCH ×4 (06:34→20:46)
[2020-02-18] MEDS: INSULIN LISPRO SLIDING SCALE 100 UNITS/ML VIAL SUBQ PRN ×4 (06:36→20:47)
--- NOTE | 2020-02-18 06:45 | NUR ---
PT BLOOD GLUCOSE 266, ADMINISTERED 6 UNITS HUMALOG PER PROTOCOL
[2020-02-18 07:00] LABS: PHOSPHORUS 4.1 mg/dL (2.5-4.9)
--- NOTE | 2020-02-18 07:08 | NUR ---
ENDORSED TO DAY SHIFT RN FOR CONTINUITY OF CARE, PT IN STABLE CONDITION
--- NOTE | 2020-02-18 07:10 | NUR ---
RECEIVED INTUBATED PT WITH A 7.5 ETT SECURED @23 TEETH/GUM ON VENT. SETTINGS A/C VC 20, VT 350, PEEP 15 AND FIO2 TITRATED TO 55%. PT SUCTIONED OBTAINED SMALL AMOUNT OF THICK WHITE/CLEAR SECRETIONS, AIRWAY IS PATENT AND ETT IS SECURE WITH ANCHOR FAST DEVICE. PT SEDATED NOT IN ANY DISTRESS AT THIS TIME. VENT IS PLUGGED INTO A RED OUTLET WITH ALARMS ON AND FUNCTIONING. WILL CONTINUE TO MONITOR.
--- NOTE | 2020-02-18 07:10 | NUR ---
HANDOFF RECEIVED FROM PULLBOAT ENGINEER RN. PT IS SEDATED RASS -3. PT IS ETT TO VENT ACVC WITH FIO2 OF 60%, R 20, PEEP 15, VT 350. PT IS SR ON THE MONITOR AT THIS TIME. PT IS OG TUBE WITH FEEDING, GLUCERNA 1.2 RUNNING AT 20 ML/HR (GOAL IS 40 ML/HR) WITH FWF OF 300 Q 4HR. PT HAS ACCESS AT CRISPIN PICC LINE, L AC, AND L WRIST. D5 IS RUNNING AT 100 ML/HR, VERSED AT 10 MG/HR, AND FENTANYL AT 2.5 MCG/KG/HR. PT HAS HOLDEN CATHETER IN PLACE. PT IS SUPINE, HOB IS 30 DEG, WITH BED IN LOW, LOCKED POSITION. WILL CONTINUE TO MONITOR.
[2020-02-18] MEDS: MIDAZOLAM IV PRN ×2 (07:59→19:06)
[2020-02-18] MEDS: NACL 0.9% IV PRN ×2 (07:59→19:06)
[2020-02-18] MEDS: ENOXAPARIN 60 MG/0.6 ML SYR SUBQ SCH ×2 (08:51→20:48)
[2020-02-18] MEDS: ZINC SULF 220 MG CAP PO SCH (08:54)
[2020-02-18] MEDS: PANTOPRAZOLE 40 MG INJ VIAL IVP SCH (08:54)
[2020-02-18] MEDS: AMIODARONE 200 MG TAB PO SCH ×2 (08:54→20:47)
[2020-02-18] MEDS: methylPREDNISolone SS 40 MG/ML VIAL IVP SCH (08:54)
[2020-02-18] MEDS: ASCORBIC ACID 500 MG TAB PO SCH (08:54)
[2020-02-18] MEDS ORDERED: CRUSHER, PILL MC ONE (09:09)
--- NOTE | 2020-02-18 09:45 | NUR ---
MEDICATIONS ADMINISTERED PER ORDER. PT TOLERATED WELL. TEMPERATURE 96.4 AXILLARY. HOLDEN CARE, CHG BATH, AND VAP CARE PROVIDED. 140 ML RESIDUAL FROM OG TUBE FEED, KEPT AT 20 ML/HR. REMOVED BOTH LEFT WRIST AND LEFT AC IV DUE TO LEAKING. BLEEDING CONTROLLED. WILL CONTINUE TO MONITOR.
--- NOTE | 2020-02-18 10:14 | NUR ---
DR. GODOY TO SEE PT.
--- NOTE | 2020-02-18 10:44 | NUR ---
DR. BARON TO SEE PT.
--- NOTE | 2020-02-18 11:13 | NUR ---
(02/18/20) RD FOLLOW UP COMPLETED PLEASE REFER TO NUTRITION PROGRESS NOTE UNDER CARE ACTIVITY FOR ESTIMATED NUTRITION NEEDS. RD RECOMMENDATIONS: 1. IF WHEN PT IS BETTER TOLERATING TF, RESUME TF GLUCERNA 1.2 AT 40 ML/HR TOLERATED. 2. RECOMMEND ADDING PROSOURCE 1 PKT BID TO PROVIDE ADDITIONAL 80 KCAL AND [address] TO FOLLOW-UP 2-3 DAYS, HIGH RISK. BELINDA ANTONIO, MS, RDN
--- NOTE | 2020-02-18 12:10 | NUR ---
PT PRONED. RT SHALINI RT AT BEDSIDE FOR SUPPORT. PT TOLERATED WELL. BS 269, 6 UNITS INSULIN ADMINISTERED. FIO2 AT 55%. VAP ORAL CARE PROVIDED. WILL CONTINUE TO MONITOR.
--- NOTE | 2020-02-18 12:10 | NUR ---
PT PLACED INTO PRONE POSITION, TOLERATING WELL. ETT IS SECURE WITH A PATENT AIRWAY. WILL CONTINUE TO MONITOR.
--- NOTE | 2020-02-18 16:17 | NUR ---
DR. MAYORGA AT BEDSIDE, LOWERED PEEP TO 12. PT SATTING 98%, WILL CONTINUE TO MONITOR.
--- NOTE | 2020-02-18 16:20 | NUR ---
WAS NOTIFIED BY NURSE AND CHANGE IN PEEP NEW SETTING IS [id number].
--- NOTE | 2020-02-18 17:21 | NUR ---
PT REMAINS ON DOCUMENTED VENT SETTINGS, ETT IS SECURE WITH A PATENT AIRWAY. PT SEDATED AND NOT IN ANY DISTRESS AT THIS TIME. VENT ALARMS REMAIN ON AND FUNCTIONING.
[2020-02-18] MEDS ORDERED: NACL 0.9% 500 ML IV ONE (17:50)
--- NOTE | 2020-02-18 18:05 | NUR ---
PT NOW IN A FIB RVR ON MONITOR. DR. WALT LOD
[2020-02-18] MEDS: METOPROLOL 5 MG/5 ML VIAL IV PRN (18:37)
--- NOTE | 2020-02-18 18:40 | NUR ---
PRN METOPROLOL ADMINISTERED. WILL CONTINUE TO MONITOR
--- NOTE | 2020-02-18 19:15 | NUR ---
HANDOFF GIVEN TO BUSINESS CONTINUITY ANALYST RN FOR CONTINUITY OF CARE
--- NOTE | 2020-02-18 19:50 | NUR ---
RECEIVED PT FROM DAY SHIFT ON SETTING FIO2 45%, VT 350 R 20,PEEP 12. PT INTUBATED WITH ETT SECURED WITH ANCHORFAST @ 23CM @ TEETH. PT IN PRONE POSITION VENTILATOR PLUGGED TO THE RED OUTLET. BVM @BEDSIDE. ALARMS SET AUDIBLE. AIRWAY IS PATENT, NO SIGN OF RESPIRATORY DISTRESS. WILL CONTINUE TO MONITOR.
--- NOTE | 2020-02-18 22:21 | NUR ---
RECEIVED REPORT FORM ESTEFANI RN, AT BEDSIDE, FOR CONTINUITY OF CARE. SEDATED TO RASS -3, PER MD ORDERS. LYING IN PRONE POSITION. ETT TO VENT WITH SETTINGS FOLLOWS: ACVC 45%, 350, 20, 12. LUNG SOUNDS DIMINISHED THROUGHOUT. +S1, S2 NOTED, RHYTHM SHOWS AFIB ON MONITOR, DR RICH AWARE. BOWEL SOUNDS ACTIVE, ABD SOFT, NON-DISTENDED. OGT IN PLACE, FEEDING HELD PER AZRARIANNA D/T PRONE POSITIONING. INCONTINENT DERMATITIS NOTED TO JUAN PABLO AREA. HOLDEN IN PLACE DRAINING CLEAR, YELLOW-URINE TO GRAVITY. CRISPIN PICC IN PLACE INFUSING VERSED @ 10 MG/H, FENTANYL 2.5 MCG/K/H. SKIN WARM AND DRY. FLACC 0. WILL CONT TO MONITOR FOR CHANGES. Addendum: 02/18/20 at 2234 by Sadie Bruce RN ERROR. TIME 1914
[2020-02-18] MEDS: fentaNYL citrate 1 MG in NACL 0.9% 80 ML IV PRN (23:33)
[2020-02-19] VITALS (106 sets, daily range): BP systolic 93–144; BP diastolic 38–59
[2020-02-19] MEDS: Z-GUARD PASTE TP SCH ×2 (01:02→12:57)
[2020-02-19] MEDS: ALBUTEROL SULFATE/IPRATROPIU 3 ML SOL IH SCH ×4 (01:05→20:44)
--- NOTE | 2020-02-19 03:48 | NUR ---
PT PLACED IN SUPINE POSITION AND GINA WELL SPO2 92% HR 80 HOB IS ELEVATED
[2020-02-19] MEDS: NACL 0.9% IV PRN ×2 (04:45→15:17)
[2020-02-19] MEDS: MIDAZOLAM IV PRN ×2 (04:45→15:17)
[2020-02-19 04:46] LABS: BASOPHILS # (AUTO) 0.1 K/uL (0.00-0.22); BASOPHILS % (AUTO) 0.8 % (0.0-2.0); HEMATOCRIT 30.6 % (36-48); HEMOGLOBIN 9.7 g/dL (12.0-16.0); LYMPHOCYTES # (AUTO) 0.4 K/uL (2.5-16.5); LYMPHOCYTES % (AUTO) 3.3 % (20.5-51.1); MEAN CORPUSCULAR HEMOGLOBIN 32 pg (27-31); MEAN CORPUSCULAR HGB CONC 32 g/dL (33-37); MEAN CORPUSCULAR VOLUME 100.2 fL (80-94); MONOCYTES # (AUTO) 0.3 K/uL (0.8-1.0); MONOCYTES % (AUTO) 2.7 % (1.7-9.3); NEUTROPHILS # (AUTO) 10.5 K/uL (1.8-7.7); NEUTROPHILS % (AUTO) 93.2 % (42.2-75.2); PLATELET COUNT (AUTO) 94 K/uL (140-450); RED BLOOD CELL COUNT(AUTO) 3.05 MIL/uL (4.20-5.40); RED CELL DISTRIBUTION WIDTH 17.7 % (11.6-13.7); WHITE BLOOD COUNT (AUTO) 11.3 K/uL (4.8-10.8)
[2020-02-19 05:21] LABS: ANION GAP 13.3 (8-16); CARBON DIOXIDE 24.6 mmol/L (21-32); CREATININE 2.3 mg/dL (0.6-1.3); POTASSIUM 3.9 mmol/L (3.5-5.1)
[2020-02-19 05:37] LABS: MAGNESIUM 2.1 mg/dL (1.8-2.4); PHOSPHORUS 4.7 mg/dL (2.5-4.9)
--- NOTE | 2020-02-19 06:03 | NUR ---
SPOKE WITH DAUGHTER CATHY AT THIS TIME. UPDATED ON PT STATUS
[2020-02-19] MEDS: BLOOD GLUCOSE MONITORING 1 DEV DEV FS SCH ×4 (06:41→20:02)
[2020-02-19] MEDS: INSULIN LISPRO SLIDING SCALE 100 UNITS/ML VIAL SUBQ PRN ×4 (06:42→20:03)
--- NOTE | 2020-02-19 07:10 | NUR ---
BS 129, INSULIN ISRAEL RUNNING Addendum: 02/19/20 at 0842 by Skyla Sanchez RN RN INCORRECT PT
--- NOTE | 2020-02-19 07:28 | NUR ---
HANDOFF RECEIVED FROM LEATHER STRETCHER RN. PT IS SEDATED RASS -3. PT IS ETT TO VENT ACVC WITH FIO2 OF 45%, R 20, PEEP 12, VT 350. PT IS SR ON THE MONITOR AT THIS TIME. PT IS OG TUBE WITH FEEDING, GLUCERNA 1.2 RUNNING AT 20 ML/HR (GOAL IS 40 ML/HR) WITH FWF OF 300 Q 4HR. PT HAS ACCESS AT CRISPIN PICC LINE. VERSED IS RUNNING AT 10 MG/HR, AND FENTANYL AT 2.5 MCG/KG/HR. PT HAS HOLDEN CATHETER IN PLACE. PT IS SUPINE, HOB IS 30 DEG, WITH BED IN LOW, LOCKED POSITION. WILL CONTINUE TO MONITOR.
--- NOTE | 2020-02-19 08:07 | NUR ---
RECEIVED INTUBATED PT WITH A 7.5 ETT SECURED @23 TEETH/GUM ON VENT. SETTINGS A/C VC 20, VT 350, PEEP 12 AND FIO2 TITRATED TO 45%. PT SUCTIONED OBTAINED SMALL AMOUNT OF THICK WHITE/CLEAR SECRETIONS, AIRWAY IS PATENT AND ETT IS SECURE WITH ANCHOR FAST DEVICE. PT SEDATED NOT IN ANY DISTRESS AT THIS TIME. VENT IS PLUGGED INTO A RED OUTLET WITH ALARMS ON AND FUNCTIONING. WILL CONTINUE TO MONITOR.
--- NOTE | 2020-02-19 08:10 | NUR ---
BS 141, INSULIN DRIP RUNNING. MEDICATIONS ADMINISTERED PER ORDER. TEMPERATURE 98.6 ORALLY. PT PROVIDED WITH ORAL CARE, ABLE TO DO SO INDEPENDENTLY. PT SITTING UP IN BED EATING BREAKFAST. Addendum: 02/19/20 at 0852 by Skyla Sanchez RN RN INCORRECT PT
[2020-02-19] MEDS: ENOXAPARIN 60 MG/0.6 ML SYR SUBQ SCH ×3 (09:00→21:00)
[2020-02-19] MEDS: NACL 0.9% 1,000 ML IV SCH (09:40)
[2020-02-19] MEDS: methylPREDNISolone SS 40 MG/ML VIAL IVP SCH (09:59)
[2020-02-19] MEDS: PANTOPRAZOLE 40 MG INJ VIAL IVP SCH (09:59)
[2020-02-19] MEDS: AMIODARONE 200 MG TAB PO SCH ×2 (10:00→20:04)
[2020-02-19] MEDS: ASCORBIC ACID 500 MG TAB PO SCH (10:00)
--- NOTE | 2020-02-19 10:00 | NUR ---
MEDICATIONS ADMINISTERED PER ORDER. PT TOLERATED WELL. TEMPERATURE 95.5 AXILLARY. VAP ORAL CARE, CHG BATH, AND HOLDEN CARE PROVIDED. 40 ML RESIDUAL FROM TUBE FEED, INCREASED RATE TO 30 ML/HR. WILL CONTINUE TO MONITOR.
[2020-02-19] MEDS: ZINC SULF 220 MG CAP PO SCH (10:01)
--- NOTE | 2020-02-19 12:00 | NUR ---
BS 257, 6 UNITS INSULIN ADMINISTERED
--- NOTE | 2020-02-19 12:45 | NUR ---
PT PLACED INTO PRONE POSITION WITH ASSISTANCE OF RT SHALINI. CRISPIN PICC LINE BECAME SLIGHTLY DISPLACED. STILL FLUSHES AND GOOD BLOOD RETURN. BANDAGE REINFORCED. DR. BRADLEY MADE AWARE. NEW PICC TO BE INSERTED LATER BY PICC LINE RN
--- NOTE | 2020-02-19 14:21 | NUR ---
PT. ADMITTED WITH LOW LULU SCALE AT RISK AND MAD TO SACRALCOCCYX, CONTINUE TO FOLLOW PRESSURE ULCER PREVENTION INTERVENTIONS. -APPLY Z-GUARD TO SACRALCOCCYX BID AND PRN IF SOILING -TURN AND REPOSITION PATIENT Q 2H -ASSESS AND MONITOR SKIN CONDITION DURING POSITION CHANGE -OFFLOAD BILATERAL HEELS BY PLACING PILLOWS UNDER CALVES AT ALL TIMES, UNLESS OTHERWISE CONTRAINDICATED -PRESSURE REDISTRIBUTION BY PLACING PILLOWS AND OFFLOADING SACRALCOCCYX -KEEP SKIN CLEAN AND DRY AT ALL TIMES.
--- NOTE | 2020-02-19 16:00 | NUR ---
TEMPERATURE 97.0 TEMPORALLY
--- NOTE | 2020-02-19 17:00 | NUR ---
BS 229, 4 UNITS INSULIN ADMINISTERED
[2020-02-19] MEDS: fentaNYL citrate - 50mL vial 2.5 MG in NACL 0.9% 200 ML IV PRN (17:29)
--- NOTE | 2020-02-19 18:12 | NUR ---
PT PLACED BACK INTO SUPINE FOR PICC LINE NURSE. PT TOLERATING WELL. VENT ALARMS ON AND FUNCTIONING. ETT IS SECURE WITH A PATENT AIRWAY.
--- NOTE | 2020-02-19 18:12 | NUR ---
PT RETURNED TO SUPINE WITH HELP OF RT LOYA FOR PICC LINE REINSERTION. PICC LINE RN ANISHA AT BEDSIDE. CONSENT PRESENT.
--- NOTE | 2020-02-19 19:00 | NUR ---
PICC LINE OKAY TO USE PER C XRAY
--- NOTE | 2020-02-19 19:05 | NUR ---
HANDOFF GIVEN TO [employer] PROFESSOR RN FOR CONTINUITY OF CARE
--- NOTE | 2020-02-19 19:15 | NUR ---
RECEIVED REPORT FORM ESTEFANI RN, AT BEDSIDE, FOR CONTINUITY OF CARE. SEDATED TO RASS -3, PER MD ORDERS. LYING IN SUPINE POSITION. ETT TO VENT WITH SETTINGS FOLLOWS: ACVC 45%, 350, 20, 12. LUNG SOUNDS DIMINISHED THROUGHOUT. +S1, S2 NOTED, RHYTHM SHOWS SINUS ARRHYTHMIA ON MONITOR.. BOWEL SOUNDS ACTIVE, ABD LARGE, SOFT, NON-DISTENDED. OGT IN PLACE INFUSING GLUCERNA 1.2 @ 30 ML/HR (GOAL 40 ML/H) [id number] Q4H. 10 ML RESIDUAL ASPIRATED AND REPLACED. INCONTINENT DERMATITIS NOTED TO JUAN PABLO AREA. HOLDEN IN PLACE DRAINING SMALL AMOUNT OF CLEAR, YELLOW-URINE TO GRAVITY. CRISPIN PICC IN PLACE INFUSING VERSED @ 10 MG/H, FENTANYL 2.5 MCG/K/H. SKIN WARM AND DRY. FLACC 0. WILL CONT TO MONITOR FOR CHANGES.
[2020-02-19] MEDS: DOCUSATE 100 MG/10 ML UDC GT PRN (20:30)
--- NOTE | 2020-02-19 21:00 | NUR ---
LOVENOX ADMINISTERED PER DR ROLDAN R/T ELEVATED D-DIMER. AWARE OF DECREASED PLATELET COUNT.
[2020-02-20] VITALS (107 sets, daily range): BP systolic 86–124; BP diastolic 41–65
[2020-02-20] MEDS: ALBUTEROL SULFATE/IPRATROPIU 3 ML SOL IH SCH ×4 (00:43→20:00)
--- NOTE | 2020-02-20 01:30 | NUR ---
PTS DAUGHTER CATHY CALLED AT THIS TIME. UPDATED ON PTS CONDITION. REQUESTED TO SPEAK WITH DOCTOR. WILL ENDORSE TO AM SHIFT FOR FOLLOW-UP.
[2020-02-20] MEDS: Z-GUARD PASTE TP SCH ×2 (01:31→13:43)
[2020-02-20] MEDS: fentaNYL citrate - 50mL vial 2.5 MG in NACL 0.9% 200 ML IV PRN ×2 (02:58→12:03)
--- NOTE | 2020-02-20 04:00 | NUR ---
PRONED PT AT THIS TIME WITH ASSISTANCE FROM RT AND OTHER STAFF. TOLERATED WELL. SAFETY PRECAUTIONS REMAIN IN PLACE WITH BED LOW AND LOCKED. WILL CONT TO MONITOR FOR CHANGES.
[2020-02-20] MEDS: NACL 0.9% 1,000 ML IV SCH ×2 (05:00→18:30)
[2020-02-20 06:37] LABS: ALBUMIN 1.9 g/dL (3.4-5.0); ANION GAP 16.3 (8-16); CARBON DIOXIDE 20.6 mmol/L (21-32); CREATININE 2.7 mg/dL (0.6-1.3); POTASSIUM 3.9 mmol/L (3.5-5.1); TOTAL BILIRUBIN 0.6 mg/dL (0.0-1.0)
[2020-02-20] MEDS: BLOOD GLUCOSE MONITORING 1 DEV DEV FS SCH ×4 (07:19→21:05)
[2020-02-20] MEDS: INSULIN LISPRO SLIDING SCALE 100 UNITS/ML VIAL SUBQ PRN ×4 (07:20→21:04)
--- NOTE | 2020-02-20 07:21 | NUR ---
PT REPORT GIVEN TO DAYSHIFT NURSE, AT BEDSIDE, FOR CONTINUITY OF CARE. VSS. PICC PATENT AND FUNCTIONING.
--- NOTE | 2020-02-20 07:21 | NUR ---
BEDSIDE REPORT RECEIVED BY MANAGER WORKERS COMPENSATION NURSE. PT IN BED IN PRONE POSITION, AROUSABLE TO PAIN. BED IN TRENDE[place]BURG POSITION. SEDATED TO RASS3. ETT TO TO VENT ACVC 45% FIO2, RR 20, PEEP 12. BREATHING EVEN AND UNLABORED NO SIGNS OF ACUTE DISTRESS NOTED. OG TUBE FEEDING, GLUCERNA 1.2, ON HOLD WHILE PRONE. DRESSING TO SACRAL AREA, CLEAN, DRY INTACT. HOLDEN CATHETER DRAINING TO GRAVITY, CLEAR YELLOW URING. CRISPIN PICC INFUSING: NS 75 ML/HR, FENTANYL 2.5 MCG/KG/HR, MIDAZOLAM 10 MG/HR. BED IN LOW POSITION, MAIL COURIER IN PLACE. SAFETY MEASURES IN PLACE.
--- NOTE | 2020-02-20 08:25 | NUR ---
DR BRADLEY ROUNDING ON PT AT BEDSIDE.
--- NOTE | 2020-02-20 08:54 | NUR ---
PT DAUGHTER CALLED, DAUGHTER UPDATED ON PT CONDITION.
[2020-02-20] MEDS: methylPREDNISolone SS 40 MG/ML VIAL IVP SCH (09:32)
[2020-02-20] MEDS: PANTOPRAZOLE 40 MG INJ VIAL IVP SCH (09:32)
[2020-02-20] MEDS: ZINC SULF 220 MG CAP PO SCH (09:32)
[2020-02-20] MEDS: ASCORBIC ACID 500 MG TAB PO SCH (09:32)
[2020-02-20] MEDS: AMIODARONE 200 MG TAB PO SCH ×2 (09:33→20:31)
[2020-02-20] MEDS: ENOXAPARIN 60 MG/0.6 ML SYR SUBQ SCH ×2 (09:34→20:22)
--- NOTE | 2020-02-20 09:35 | NUR ---
SCHEDULED AM MEDICATIONS ADMINISTERED PER MD ORDER. PLT: 94 L, LOVENOX ADMINISTERED DUE TO ELEVATED DIMER PER DR ROLDAN'S ORDERS. OG TUBE RESIDUAL 10 ML, FLUSHED BEFORE AND AFTER MEDS. MED EDUCATION PROVIDED TO PT, REINFORCEMENT NEEDED. PT REPOSITIONED AND OFFLOADED PRESSURE WITH PILLOWS. HCG BATH, CATHETER CARE PROVIDED. ORAL CARE PROVIDED, CHANGED ALL DIRTY LINEN. BED IN [place]G POSITION. BREATHING EVEN AND UNLABORED. NO SIGNS OF ACUTE DISTRESS NOTED. SEWER HEAD IN PLACE. SAFETY MEASURES IN PLACE.
--- NOTE | 2020-02-20 11:15 | NUR ---
DR MARKHAM IS ROUNDING ON PATIENT. PER DR MARKHAM, SINCE PLT IS GETTING LOWER, HOLD THE ENOXAPARIN SUBQ FROM TONIGHT AND ON. ALSO, ORDER TO START LOWERING THE PEEP, WILL NOTIFY RT.
[2020-02-20] MEDS ORDERED: FUROSEMIDE 40 MG/4 ML VIAL IVP SCH (11:45)
--- NOTE | 2020-02-20 12:03 | NUR ---
STARTED NEW BAG OF FENTANYL, WITH ALL NEW TUBING. LASIX ADMINISTERED PER MD ORDER, ONE TIME DOSE. BLOOD GLUCOSE CHECKED, 193, 2 UNITS HUMALOG ADMINISTERED. MED EDUCATION PROVIDED, REINBURSEMENT NEEDED. HANGING FLAGS DECORATOR IN PLACE. SAFETY MEASURES IN PLACE. NO SIGNS OF ACUTE DISTRESS NOTED.
[2020-02-20] MEDS: NACL 0.9% IV PRN ×2 (13:02→20:33)
[2020-02-20] MEDS: MIDAZOLAM IV PRN ×2 (13:02→20:33)
--- NOTE | 2020-02-20 13:03 | NUR ---
STARTED NEW BOTTLE OF VERSED, WITH ALL NEW TUBING. MED EDUCATION PROVIDED, REINFORCEMENT NEEDED.
--- NOTE | 2020-02-20 13:44 | NUR ---
ZGUARD APPLIED, PERINEAL HYGIENE PROVIDED, REPOSITIONED PT AND OFFLOADED PRESSURE WITH PILLOWS. MED EDUCATION PROVIDED, REINFORCEMENT NEEDED.
[2020-02-20] MEDS: DOCUSATE 100 MG/10 ML UDC GT PRN (14:29)
--- NOTE | 2020-02-20 14:29 | NUR ---
PRN COLACE ADMINISTERED DUE TO PT CONSTIPATION. MED EDUCATION PROVIDED, REINFORCEMENT NEEDED. GTUBE RESIDUAL RESIDUAL, 5 ML, FLUSHED BEFORE AND AFTER MEDS.
--- NOTE | 2020-02-20 16:25 | NUR ---
DR BENJAMIN IS TALKING TO PATIENT'S DAUGHTER BEATRY REGARDING HEMODIALYSIS ON THE PHONE.
--- NOTE | 2020-02-20 16:30 | NUR ---
SPOKE ON THE PHONE WITH PATIENT DAUGHTER MARIO WEEKSIldefonsoBROOKLYN, RECEIVED VERBAL CONSENT WITH ANOTHER NURSE FOR ANNABEL CATH PLACEMENT AND HEMODIALYSIS. DAUGHTER MARIO IS AWARE AND AGREES TO PROCEDURE.
[2020-02-20] MEDS ORDERED: BUMETANIDE 1 MG/4 ML VIAL IV SCH (17:00)
--- NOTE | 2020-02-20 17:32 | NUR ---
MEDS ADMINISTERED PER MD ORDER. BLOOD GLUCOSE CHECKED, 219, 4 UNITS HUMALOG ADMINISTERED. PT REPOSITIONED, SUPINED WITH RT ASSISTANCE. OFFLOADED PRESSURE WITH PILLOWS. HOB 30 DEGREES, SIGNS OF ACUTE DISTRESS NOTED. PAINTER DRUM IN PLACE, SAFETY MEASURES IN PLACE.
--- NOTE | 2020-02-20 18:04 | NUR ---
DR CALDERON AT BEDSIDE PERFORMING ANNABEL CATH ACCESS PROCEDURE.
--- NOTE | 2020-02-20 19:29 | NUR ---
ENDORSED PT TO EXPERIMENTAL PHYSICIST NURSE FOR CONTINUITY OF CARE. PT IN STABLE CONDITION.
--- NOTE | 2020-02-20 20:00 | NUR ---
RECEIVED PT FROM AM SHIFT. PT SEEN AND ASSESSED. PT IS INTUBATED WITH EET SIZE 7.5 AND SECURED WITH ANCHOR-FAST @ 23cm @ THE TEETH. VENT SETTINGS AC/VC RR 20, VT 350, PEEP 12, FiO2 90% WITH SPO2 94%. VENT PLUGGED IN RED OUTLET AND ALARMS SET AND AUDIBLE. WILL CONTINUE TO MONITOR PT.
--- NOTE | 2020-02-20 20:45 | NUR ---
pt with ogt; placement verified.ogt feeding restarted as ordered.gluverna 1.2 at 40ml/hr and water flush 200ml q4hrs.
--- NOTE | 2020-02-20 21:00 | NUR ---
lovenox on hold per dr tompkins due to low plt
--- NOTE | 2020-02-20 22:20 | NUR ---
PAGED DOCTOR @ 2220. AT APPROXIMATELY 2226 DOCTOR MAYORGA CALLED BACK. REPORTED TO DOCTOR MAYORGA THAT VENT WAS CONSTANTLY PEAK PRESSURING (GREATER THAN [id number]) ON AC/VC 20, 350, +12, 90%. SWITCHED MODE TO AC/PC RR 20, PIP 18, PEEP 12, FiO2 90% WITH EXHALE VOLUME FROM 200cc TO 700cc. DOCTOR IS OKAY WITH THE CHANGES. DOCTOR ORDERED FOR STAT X RAY. RN NOTIFIED. NO ABG ORDERED. WILL CONTINUE TO MONITOR PT.
--- NOTE | 2020-02-20 23:08 | NUR ---
phone call from pts daughter; dinorath, updated on pts present condition.made aware hd catheter already in place and hd ordered for am.questions answered
--- NOTE | 2020-02-20 23:27 | NUR ---
dr arce in the unit; updated on pts present condition.made aware of new hd cath.no new orders
[2020-02-21] VITALS (105 sets, daily range): BP systolic 67–142; BP diastolic 39–89
--- NOTE | 2020-02-21 | NUR ---
ORAL CARE USING VAP KIT RENDERED.PT ON DAILY PROTONIX FOR GI PROPHYLAXIS.REPOSITIONED.W/OGT FEEDING; 50ML RESIDUALS NOTED.FLACC 0
[2020-02-21] MEDS: ALBUTEROL SULFATE/IPRATROPIU 3 ML SOL IH SCH ×4 (01:00→19:05)
[2020-02-21] MEDS: Z-GUARD PASTE TP SCH ×3 (01:00→13:00)
--- NOTE | 2020-02-21 02:30 | NUR ---
PLACED PATIENT IN PRONE POSITION. PATIENT TOLERATED PROCEDURE WELL. SUCTION SCANT AMOUNT OF YELLOW THICK SECRETIONS FROM ETT. SPO2 92%. BILATERAL BREATH SOUNDS ON AUSCULTATION. PATIENT IS IN NO RESPIRATORY DISTRESS AT THIS TIME. RN AT BEDSIDE. WILL CONTINUE TO MONITOR PATIENT.
--- NOTE | 2020-02-21 02:30 | NUR ---
PT REPOSITIONED; PRONE POSITION NOW.TOLERATING., 02SAT 98%.FLACC 0
[2020-02-21 06:22] LABS: HEMATOCRIT 29.8 % (36-48); HEMOGLOBIN 9.8 g/dL (12.0-16.0); MEAN CORPUSCULAR HEMOGLOBIN 33 pg (27-31); MEAN CORPUSCULAR HGB CONC 33 g/dL (33-37); MEAN CORPUSCULAR VOLUME 98.5 fL (80-94); RED BLOOD CELL COUNT(AUTO) 3.02 MIL/uL (4.20-5.40); RED CELL DISTRIBUTION WIDTH 17.5 % (11.6-13.7); WHITE BLOOD COUNT (AUTO) 8.9 K/uL (4.8-10.8)
[2020-02-21 06:33] LABS: PLATELET COUNT (AUTO) 77 K/uL (140-450)
[2020-02-21 06:37] LABS: ANION GAP 16.6 (8-16); CARBON DIOXIDE 19.6 mmol/L (21-32); CREATININE 3.1 mg/dL (0.6-1.3); POTASSIUM 4.2 mmol/L (3.5-5.1)
[2020-02-21 06:46] LABS: MAGNESIUM 1.9 mg/dL (1.8-2.4); PHOSPHORUS 4.2 mg/dL (2.5-4.9)
[2020-02-21] MEDS: MIDAZOLAM IV PRN (07:02)
[2020-02-21] MEDS: NACL 0.9% IV PRN (07:02)
[2020-02-21 07:16] LABS: LYMPHOCYTES % (MANUAL) 5 % (20-46); MONOCYTES % (MANUAL) 3 % (5-12)
--- NOTE | 2020-02-21 07:30 | NUR ---
receive report from deana keys. PT, IS SLEEPING ON PRONE POSITION . ETT TO VENT O2 SAT 97% OG TUBE IS OFF DUE TO PRONE POSITION. IN GENERAL SKIN IS DRY AND WARM TO TOUCH PICC IS IN PLACE THE DRESSING IS DRY AND INTACI HOLDEN CATH DRAIN CLEAR RIKI URINE.
[2020-02-21] MEDS: ZINC SULF 220 MG CAP PO SCH (09:00)
[2020-02-21] MEDS: ASCORBIC ACID 500 MG TAB PO SCH (09:00)
[2020-02-21] MEDS: AMIODARONE 200 MG TAB PO SCH ×2 (09:00→20:49)
[2020-02-21] MEDS: PANTOPRAZOLE 40 MG INJ VIAL IVP SCH (09:00)
[2020-02-21] MEDS: ENOXAPARIN 60 MG/0.6 ML SYR SUBQ SCH (09:00)
[2020-02-21] MEDS: methylPREDNISolone SS 40 MG/ML VIAL IVP SCH (09:00)
[2020-02-21] MEDS: BLOOD GLUCOSE MONITORING 1 DEV DEV FS SCH ×4 (09:00→20:49)
--- NOTE | 2020-02-21 09:00 | NUR ---
blood glucose 185 insulin cover as order,
[2020-02-21] MEDS: NACL 0.9% 1,000 ML IV SCH ×2 (10:30→19:18)
[2020-02-21] MEDS ORDERED: hePARIN / DEXT 5% PREMIX 250 ML IV SCH (12:20)
--- NOTE | 2020-02-21 12:40 | NUR ---
HD STARTED PT TOLERATED AT E TME
[2020-02-21] MEDS ORDERED: ALBUMIN HUMAN 25% 100 ML IV ONE (13:35)
[2020-02-21] MEDS ORDERED: ALBUMIN HUMAN 25% 200 ML IV SCH (13:35)
[2020-02-21] MEDS ORDERED: ALBUMIN HUMAN 25% 200 ML IV ONE (13:35)
--- NOTE | 2020-02-21 14:32 | NUR ---
02/21/20 RD FOLLOW UP COMPLETED PLEASE REFER TO NUTRITION ASSESSMENT UNDER CARE ACTIVITY FOR ESTIMATED NUTRITIONAL NEEDS. 1. RECOMMEND CHANGING FORMULA TO NEPRO 1.8 @ 60 ML/HR X 8 HOURS WITH PROSOURCE TID -THIS WILL PROVIDE 1104 KCAL 83 GM OF PROTEIN 2. RECOMMEND FLUSH OF 380 ML BID (TOTAL OF 760 ML TOTAL/DAY) 3. RD TO FOLLOW-UP 2-3 DAYS, HIGH RISK DORCAS WYLIE RD Addendum: 02/21/20 at [address] CORRECTION: 1044 KCAL WILL BE PROVIDED
--- NOTE | 2020-02-21 15:11 | NUR ---
PT. BECAME TACHY CARDIA KIMBERLY AVILA WAS CALL HE ORDER AMIODAROE 150MG IV PUSH AND TO NOTIFY THE PRIMARY TO FOLLOW UP THE ORDER WAS CARRIED NOEMY AND WAS NOTIFIED. .
--- NOTE | 2020-02-21 15:12 | NUR ---
HD COMPLETED 2100 FLUID OUT
[2020-02-21] MEDS ORDERED: AMIODARONE 150 MG/3 ML VIAL IV ONE (15:23)
[2020-02-21] MEDS ORDERED: AMIODARONE 150 MG in DEXTROSE 5% 100 ML IV ONE (15:25)
[2020-02-21] MEDS ORDERED: AMIODARONE 450 MG in DEXTROSE 5% 250 ML IV SCH (15:25)
--- NOTE | 2020-02-21 16:30 | NUR ---
BLOOD GLUCOSE 185 INSULIN COVER ORDERED.
--- NOTE | 2020-02-21 16:43 | NUR ---
REC'D PT IN PRONE POSITION WITH ETT SECURE AND INTACT. PT GINA TX WELL. SXN MOD THICK YELLOW WHITE SPUTUM, WILL CONTINUE TO MONITOR.
--- NOTE | 2020-02-21 17:30 | NUR ---
TURN TO SUPINE REMAIN ON SAME IV DRIP,VITALSIGN WITH IN NORMAL LIMIT.
--- NOTE | 2020-02-21 18:16 | NUR ---
RN'S AT BEDSIDE, PT SUPINE, ETT SECURE AND INTACT SXN MOD THICK YELLOW WHITE. WILL INDORSE TO NOC
--- NOTE | 2020-02-21 19:15 | NUR ---
RECEIVED PATIENT FROM AM SHIFT. PATIENT WAS SEEN AND ASSESSED. FOUND PATIENT IN SUPINE POSITIONED. PATIENT IS INTUBATED WITH ETT SIZE 7.5 AND SECURED WITH ANCHOR-FAST. PATIENT IS ON VENT SETTINGS: AC/PC RR 20, PIP 18, PEEP 12, FiO2 90% WITH SPO2 OF 98%. TITRATED FiO2 TO 85% WITH SPO2 OF 95%. VENT IS PLUGGED IN RED OUTLET. ALARMS SET AND AUDIBLE TO ENVIRONMENT. SUCTIONED SMALL AMOUNT OF YELLOW THICK SECRETIONS FROM ETT. AIRWAY IS PATENT. AUSCULTATION REVEALS BILATERAL RALES BREATH SOUNDS ON BOTH UPPER AND LOWER LOBES. PATIENT IS IN NO APPARENT RESPIRATORY DISTRESS AT THIS TIME. HHN TX GIVEN AND PT TOLERATED TX WELL WITH NO ADVERSE REACTION. RN NOTIFIED. WILL CONTINUE TO MONITOR PATIENT.
--- NOTE | 2020-02-21 19:23 | NUR ---
CONDITION REMAIN UN CHANGE REPORT GIVE TO CALEP AT BED SIDE,
--- NOTE | 2020-02-21 19:30 | NUR ---
RECEIVED REPORT FROM ESTEFANI ROJAS, PT DRY WEIGHT 58 KG, ON FENTANYL 2.5 MCG/KG/HR, VERSED 10 MG/HR, ETT TO VENT AC/PC FIO2 90% RR 20 PEEP 12, PULSES PALPABLE UPPER AND LOWER EXTREMITIES, BOWEL SOUNDS ACTIVE, HOLDEN CATHETER IN PLACE NO SIGNS OF DISTRESS NOTED, SAFETY PROTOCOLS IN PLACE WILL CONTINUE TO MONITOR PT
[2020-02-21] MEDS: POLYETHYLENE GLYCOL 17 GM/PKT GT SCH (20:49)
[2020-02-21] MEDS: INSULIN LISPRO SLIDING SCALE 100 UNITS/ML VIAL SUBQ PRN (20:51)
[2020-02-21] MEDS: fentaNYL citrate - 50mL vial 2.5 MG in NACL 0.9% 200 ML IV PRN (21:31)
[2020-02-22] VITALS (107 sets, daily range): BP systolic 66–168; BP diastolic 36–125
[2020-02-22] MEDS: Z-GUARD PASTE TP SCH ×4 (01:00→13:06)
[2020-02-22] MEDS: ALBUTEROL SULFATE/IPRATROPIU 3 ML SOL IH SCH ×4 (01:41→19:58)
--- NOTE | 2020-02-22 02:00 | NUR ---
PLACED PATIENT IN PRONE POSITION. PATIENT TOLERATED PROCEDURE WELL. SUCTION SCANT AMOUNT OF YELLOW THICK SECRETIONS FROM ETT. SPO2 95%. BILATERAL BREATH SOUNDS ON AUSCULTATION. PATIENT IS IN NO RESPIRATORY DISTRESS AT THIS TIME. RN AT BEDSIDE. WILL CONTINUE TO MONITOR PATIENT.
--- NOTE | 2020-02-22 02:04 | NUR ---
PT PLACED INTO PRONE POSITION, WITH RT ORIENTAL ORTHODOX AT BEDSIDE NO SIGNS OF DISTRESS NOTED WILL CONTINUE TO MONITOR PT
--- NOTE | 2020-02-22 02:30 | NUR ---
PLACED PATIENT IN PRONE POSITION. PATIENT TOLERATED PROCEDURE WELL. SUCTION SCANT AMOUNT OF YELLOW THICK SECRETIONS FROM ETT. SPO2 90%. BILATERAL BREATH SOUNDS ON AUSCULTATION. PATIENT IS IN NO RESPIRATORY DISTRESS AT THIS TIME. RN AT BEDSIDE. WILL CONTINUE TO MONITOR PATIENT.
[2020-02-22] MEDS: MIDAZOLAM IV PRN ×2 (04:31→16:03)
[2020-02-22] MEDS: NACL 0.9% IV PRN ×2 (04:31→16:03)
[2020-02-22 05:01] LABS: HEMATOCRIT 27.4 % (36-48); HEMOGLOBIN 8.9 g/dL (12.0-16.0); MEAN CORPUSCULAR HEMOGLOBIN 32 pg (27-31); MEAN CORPUSCULAR HGB CONC 32 g/dL (33-37); MEAN CORPUSCULAR VOLUME 98.3 fL (80-94); RED BLOOD CELL COUNT(AUTO) 2.79 MIL/uL (4.20-5.40); RED CELL DISTRIBUTION WIDTH 17.5 % (11.6-13.7); WHITE BLOOD COUNT (AUTO) 10.6 K/uL (4.8-10.8)
[2020-02-22 05:25] LABS: ANION GAP 18.7 (8-16); CARBON DIOXIDE 22.4 mmol/L (21-32); CREATININE 2.6 mg/dL (0.6-1.3); POTASSIUM 4.1 mmol/L (3.5-5.1)
[2020-02-22 06:42] LABS: PLATELET COUNT (AUTO) 65 K/uL (140-450)
[2020-02-22 06:48] LABS: LYMPHOCYTES % (MANUAL) 3 % (20-46); MONOCYTES % (MANUAL) 4 % (5-12)
[2020-02-22] MEDS: BLOOD GLUCOSE MONITORING 1 DEV DEV FS SCH ×4 (07:01→20:13)
[2020-02-22 07:04] LABS: MAGNESIUM 1.8 mg/dL (1.8-2.4); PHOSPHORUS 5.3 mg/dL (2.5-4.9)
--- NOTE | 2020-02-22 07:20 | NUR ---
RECEIVED WINDOW-SIDE REPORT FROM OPEN HEARTH FURNACE OPERATOR HELPER NURSE JOANN FOR CONTINUITY OF CARE. PATIENT IS LYING ON PRONE POSITION, RASS -3, DRY WEIGHT 58 KG, RESPIRATION EVEN AND UNLABORED ON ETT TO VENT, AC/PC RATE 20, PEEP 10. IV ON CRISPIN PICC, RUNNING NS AT 70 ML/HR, VERSED AT 10 MG/HR, AND FENTANYL 2.5 MCG/KG/HR. RIJ ANNABEL CATH WITH PIGTAIL IN PLACE. OGT IN PLACE, HELD DUE TO PRONE. PATIENT IS INCONTINENT, HOLDEN IN PLACE, MINIMAL YELLOW URINE IN BAG NOTED. INCONTINENT DERMATITIS, APPLIED Z-GUARD AND SECURED WITH HEART-SHAPE OPTIFOAM, SKIN TEAR ON L EAR, Z-GUARD APPLIED. PATIENT IS ON WOUND BED, OPTIFOAMS ON KNEES AND PILLOWS USED TO OFFLOADED PRESSURE. PRE SALES NETWORK ENGINEER IN PLACE. SAFETY MEASURES IN PLACE. BED IN LOW POSITION, AND BED LOCKED.
--- NOTE | 2020-02-22 07:27 | NUR ---
NOTIFIED SELENE FLYNNWINDOWS SERVER SUPPORT TECHNICIAN THAT PATIENT HAS AN DIALYSIS ORDER FOR TODAY, SELENE FLYNN WAS AWARE.
[2020-02-22] MEDS: methylPREDNISolone SS 40 MG/ML VIAL IVP SCH (08:48)
[2020-02-22] MEDS: PANTOPRAZOLE 40 MG INJ VIAL IVP SCH (08:48)
[2020-02-22] MEDS: POLYETHYLENE GLYCOL 17 GM/PKT GT SCH ×3 (08:48→16:50)
[2020-02-22] MEDS: ZINC SULF 220 MG CAP PO SCH (08:49)
[2020-02-22] MEDS: AMIODARONE 200 MG TAB PO SCH ×2 (08:49→20:13)
[2020-02-22] MEDS: ASCORBIC ACID 500 MG TAB PO SCH (08:49)
[2020-02-22] MEDS: NACL 0.9% 1,000 ML IV SCH (08:50)
--- NOTE | 2020-02-22 09:12 | NUR ---
ADMINISTERED SCHEDULED MEDS PER MD ORDER, CHECKED OGT RESIDUAL AND RECEIVED 15 ML RESIDUAL, FLUSHED BEFORE AND AFTER. PROVIDED HYGIENE CARE, REPOSITIONED PATIENT'S ARMS, AND PERFORMED ROM, PATIENT TOLERATED FAIR. RESPIRATION EVEN AND UNLABORED ON AC/PC FIO2 60%, RATE 20, PEEP AT 12, SPO2 AT 96%. FLACC 0. SERVICE TESTER IN PLACE. SAFETY MEASURES IN PLACE. HOB ELEVATED 35 DEGREE, BED IN LOW POSITION AND BED LOCKED.
--- NOTE | 2020-02-22 09:29 | NUR ---
PAGED DR CHRISTOPHER REGARDS ZOSYN RENEWAL. AWAITING FOR CANDI TO RETURN CALL.
--- NOTE | 2020-02-22 09:32 | NUR ---
RECEIVED A CALL BACK FROM DR CHRISTOPHER, AND DR CHRISTOPHER ORDERS TO RENEW THE ZOSYN.
--- NOTE | 2020-02-22 10:50 | NUR ---
ADMINISTERED SCHEDULED ROCEPHIN PER MD ORDER. RECEIVED A CALL FROM PATIENT'S DAUGHTER MARIO AND REQUESTS TO SPEAK WITH DR ASHTON, NOTIFIED DR ASHTON.
--- NOTE | 2020-02-22 11:55 | NUR ---
HUMALOG COVER HELD DUE TO PATIENT IS PRONE AND NPO.
--- NOTE | 2020-02-22 11:56 | NUR ---
DR MARKHAM IS ROUNDING ON PATIENT. ORDER TO CHANGE TUBE FEEDING, TUBE FEEDING 10 ML/HR WHILE PRONING AND CHANGE MIRALAX TO TID. PER DR MARKHAM, IF PATIENT'S VITAL SIGNS IS STABLE WHILE SUPINE, LOWER THE PEEP TO 11, WILL NOTIFY RT. WILL INPUT ORDER ACCORDINGLY.
--- NOTE | 2020-02-22 12:56 | NUR ---
IVF STOPPED PER MD ORDER.
--- NOTE | 2020-02-22 13:07 | NUR ---
ADMINISTERED SCHEDULED MED MIRALAX VIA OGT , FLUSHED BEFORE AND AFTER. HOLD HEPARIN SUBQ DUE TO LOW PLT AND DR ROLDAN WAS AWARE. REPOSITIONED PATIENT'S ARMS, AND PERFORMED ROM, PATIENT TOLERATED FAIR.Z-GUARD APPLIED TO SACRAL, PERINEAL AND L EAR, OPTIFOAM APPLIED TO SACRAL, PERFORMANCE IMPROVEMENT CONSULTANT FOR LEFT EAR. FLACC 0. ANALYST IN PLACE. SAFETY MEASURES IN PLACE. HOB ELEVATED 35 DEGREE, BED IN LOW POSITION AND BED LOCKED.
--- NOTE | 2020-02-22 13:25 | NUR ---
WITH ASSIST FROM RT, SUPINE PATIENT, PROVIDED HYGIENE CARE, POSITIONED PATIENT COMFORTABLY WITH PILLOW OFFLOADED PRESSURE, HEEL PROTECTORS APPLIED. WOUND PICTURE ON BOTH CHEEKS TAKEN, APPLIED VERSATEL. DIALYSIS MORTON RN IS BY BEDSIDE AND PATIENT IS GETTING DIALYSIS. SPECIAL WARFARE COMBATANT CREWMAN IN PLACE. SAFETY MEASURES IN PLACE.
[2020-02-22] MEDS: METOPROLOL 5 MG/5 ML VIAL IV PRN (14:12)
--- NOTE | 2020-02-22 14:13 | NUR ---
HEART RATE GOES UP TO 132 DURING DIALYSIS, METOPROLOL IVP WAS GIVEN. [place] MINE TECHNICIAN IS BY BEDSIDE.
--- NOTE | 2020-02-22 14:46 | NUR ---
BP WENT LOW DURING DIALYSIS 66/55, PULSE 127, CALL PHARMACY FOR NEOSYNEPHRINE STAT, AWAITING FOR DELIVERY. SELENE GANDY DANCER IS BY BEDSIDE AND DIALYSIS IS GOING.
--- NOTE | 2020-02-22 15:01 | NUR ---
DR FERGUSON IS ROUNDING ON PATIENT.
--- NOTE | 2020-02-22 15:03 | NUR ---
NEOSYNEPHRINE STARTED AT 50 MCG/MIN FOR BLOOD PRESSURE SUPPORT DURING DIALYSIS.
[2020-02-22] MEDS ORDERED: DILTIAZEM 25 MG/5 ML VIAL IVP PRN (15:10)
--- NOTE | 2020-02-22 15:51 | NUR ---
STARTED TUBE FEEDING NEPRO PER RD RECOMMENDED.
[2020-02-22] MEDS: fentaNYL citrate - 50mL vial 2.5 MG in NACL 0.9% 200 ML IV PRN (16:02)
[2020-02-22] MEDS: INSULIN LISPRO SLIDING SCALE 100 UNITS/ML VIAL SUBQ PRN ×2 (16:50→20:15)
--- NOTE | 2020-02-22 16:51 | NUR ---
BLOOD GLUCOSE 220, COVERED WITH 4 UNITS HUMALOG SUBQ. CHECKED OGT RESIDUAL AND RECEIVED < 5 ML, FLUSHED. ADMINISTERED SCHEDULED MIRALAX, FLUSHED BEFORE AND AFTER MEDS. WITH ASSIST, REPOSITIONED PATIENT, AND OFFLOADED PRESSURE WITH PILLOWS, PATIENT TOLERATED FAIR. RESPIRATION EVEN AND UNLABORED ON FIO2 60%, FLACC 0. NO SIGNS OF ACUTE DISTRESS NOTED. FLIGHT RESERVATIONS MANAGER IN PLACE. SAFETY MEASURES IN PLACE.
--- NOTE | 2020-02-22 17:50 | NUR ---
OGT FEEDING TOLERATED WELL, RESIDUAL CHECKED, RECEIVED 15 ML. WITH ASSIST, REPOSITIONED PATIENT, OFFLOADED PRESSURE WITH PILLOWS, APPLIED HEEL PROTECTORS BILATERALLY, CHANGED DIRTY LINENS, PROVIDED ORAL CARE. PATIENT TOLERATED FAIR, FLACC 0. SKEINER IN PLACE. SAFETY MEASURES IN PLACE.
--- NOTE | 2020-02-22 19:14 | NUR ---
ENDORSED PATIENT TO RESEARCH GREENHOUSE SUPERVISOR NURSE MARY FOR CONTINUITY OF CARE. PATIENT IS IN STABLE CONDITION. PRECISION INSTRUMENT AND TOOL MAKER IN PLACE. SAFETY MEASURES IN PLACE.
--- NOTE | 2020-02-22 19:30 | NUR ---
ASSUMED CARE OF PT.INITIAL ASSESSMENT COMPLETED.PT SEDATED.SR ON MONITOR. ETT TO VENT AC/PC FIO2 60% RATE 20 PEEP 5 PC18.SECRETIONS SUCTIONED.WITH OGT INTACT.PLACEMENT VERIFIED.ON NEPRO AT 60ML/HR.WITH WATER FLUSH ORDERED.RESIDUAL 50ML.W/RT IJ ANNABEL CATHETER.DRESSING D/I.W/PICC LINE TO CRISPIN INTACT.GOOD BLOOD RETURN TO BOTH PORTS INFUSING VERSED AT 10MG/HR(10ML/HR) AND FENTANYL DRIP AT 2.5MCG/KG/HR(14.5ML/HR).WITH HOLDEN CATHETER TO BSD DRAINING SMALL AMT OF LIGHT RIKI URINE.FLACC 0.WITH PURPLISH DISCOLORATION AND SMALL DAJA TEAR TO LT EAR NOTED.Z GUARD APPLIED.WILL CONTINUE TO CLOSELY MONITOR PT
--- NOTE | 2020-02-22 20:11 | NUR ---
RECEIVED PATIENT FROM AM SHIFT. PATIENT WAS SEEN AND ASSESSED. FOUND PATIENT IN SUPINE POSITIONED. PATIENT IS INTUBATED WITH ETT SIZE 7.5 AND SECURED WITH ANCHOR-FAST. PATIENT IS ON VENT SETTINGS: AC/PC RR 20, PIP 18, PEEP 12, FiO2 60% WITH SPO2 OF 95%. VENT IS PLUGGED IN RED OUTLET. ALARMS SET AND AUDIBLE TO ENVIRONMENT. SUCTIONED SMALL AMOUNT OF YELLOW THICK SECRETIONS FROM ETT. AIRWAY IS PATENT. AUSCULTATION REVEALS BILATERAL RALES BREATH SOUNDS ON BOTH UPPER AND LOWER LOBES. PATIENT IS IN NO APPARENT RESPIRATORY DISTRESS AT THIS TIME. HHN TX GIVEN AND PT TOLERATED TX WELL WITH NO ADVERSE REACTION. RN NOTIFIED. WILL CONTINUE TO MONITOR PATIENT.
--- NOTE | 2020-02-22 22:00 | NUR ---
PTS POSITION CHANGE TO PRONE POSITION ORDERED WITH RT AT BEDSIDE.MODERATE AMT OF COFFEE GROUND ORAL SECRETIONS SUCTIONED.OGT CLAMPED FOR NOW.WILL RECHECK AGAIN LATER.
[2020-02-23] VITALS (102 sets, daily range): BP systolic 101–147; BP diastolic 46–87
[2020-02-23] MEDS: Z-GUARD PASTE TP SCH ×4 (00:38→12:52)
--- NOTE | 2020-02-23 00:47 | NUR ---
PT AFEBRILE.STILL WITH SMALL AMT OF COFFEE GROUND SECRETIONS SUCTIONED FROM MOUTH.FLACC 0
[2020-02-23] MEDS: ALBUTEROL SULFATE/IPRATROPIU 3 ML SOL IH SCH ×4 (01:48→19:22)
--- NOTE | 2020-02-23 02:59 | NUR ---
pt still on prone position.flacc 0
[2020-02-23] MEDS: MIDAZOLAM IV PRN ×2 (03:21→15:02)
[2020-02-23] MEDS: NACL 0.9% IV PRN ×2 (03:21→15:02)
--- NOTE | 2020-02-23 04:10 | NUR ---
REPOSITION PATIENT'S HEAD, ARMS, AND ETT. PATIENT TOLERATED PROCEDURE WELL. BILATERAL BREATH SOUNDS ON AUSCULTATION. AIRWAY IS PATENT. PATIENT IS IN NO RESPIRATORY DISTRESS AT THIS TIME. RN AT BEDSIDE. WILL CONTINUE TO MONITOR PATIENT.
[2020-02-23 05:28] LABS: BASOPHILS % (AUTO) 0.1 % (0.0-2.0); EOSINOPHILS % (AUTO) 0.1 % (0.0-4.0); HEMATOCRIT 27.2 % (36-48); HEMOGLOBIN 8.9 g/dL (12.0-16.0); LYMPHOCYTES # (AUTO) 0.4 K/uL (2.5-16.5); LYMPHOCYTES % (AUTO) 3.4 % (20.5-51.1); MEAN CORPUSCULAR HEMOGLOBIN 32 pg (27-31); MEAN CORPUSCULAR HGB CONC 33 g/dL (33-37); MEAN CORPUSCULAR VOLUME 97.3 fL (80-94); MONOCYTES # (AUTO) 0.4 K/uL (0.8-1.0); MONOCYTES % (AUTO) 4.1 % (1.7-9.3); NEUTROPHILS # (AUTO) 10.2 K/uL (1.8-7.7); NEUTROPHILS % (AUTO) 92.3 % (42.2-75.2); PLATELET COUNT (AUTO) 56 K/uL (140-450); RED BLOOD CELL COUNT(AUTO) 2.79 MIL/uL (4.20-5.40); RED CELL DISTRIBUTION WIDTH 17.3 % (11.6-13.7)
[2020-02-23 05:40] LABS: MAGNESIUM 1.7 mg/dL (1.8-2.4); PHOSPHORUS 4.7 mg/dL (2.5-4.9)
[2020-02-23 05:41] LABS: ANION GAP 18.1 (8-16); CARBON DIOXIDE 22.5 mmol/L (21-32); CREATININE 2.4 mg/dL (0.6-1.3); POTASSIUM 3.6 mmol/L (3.5-5.1)
--- NOTE | 2020-02-23 06:22 | NUR ---
PTS CONDITION REMAINS UNCHANGED.STILL ON FENTANYL DRIP AT 2.5MCG/KG/HR AND VERSED DRIP AT 10MG/HR.PT STILL ON PRONE POSITION.02SAT 92% AT THIS TIME.FLACC 0.
--- NOTE | 2020-02-23 07:08 | NUR ---
RECEIVED INTUBATED PT WITH A 7.5 ETT SECURE @23 TEETH/GUM ON VENT. SETTINGS A/C PC Pinsp 18, R20, PEEP TITRATED TO [id number] AND FIO2 TITRATED TO 55%. PT SUCTIONED OBTAINED SMALL AMOUNT OF THICK WHITE SECRETIONS, AIRWAY IS PATENT AND SECURE. PT IS IN PRONE POSITION AT THIS TIME TOLERATING WELL NO DISTRESS.
--- NOTE | 2020-02-23 07:10 | NUR ---
RECEIVED WINDOW-SIDE REPORT FROM CUT AND PRINT MACHINE OPERATOR NURSE MARY FOR CONTINUITY OF CARE. PATIENT IS LYING ON PRONE POSITION, RASS -3, DRY WEIGHT 58 KG, RESPIRATION EVEN AND UNLABORED ON ETT TO VENT, AC/VC FIO2 AT 60%, RATE 20, PEEP 11. IV ON CRISPIN PICC, RUNNING VERSED AT 10 MG/HR, AND FENTANYL 2.5 MCG/KG/HR. RIJ ANNABEL CATH WITH PIGTAIL IN PLACE. OGT IN PLACE,FEEDING NEPRO. PATIENT IS INCONTINENT, HOLDEN IN PLACE, MINIMAL LIGHT RIKI URINE IN BAG NOTED. INCONTINENT DERMATITIS, APPLIED Z-GUARD AND SECURED WITH HEART-SHAPE OPTIFOAM, SKIN TEAR ON L EAR, Z-GUARD APPLIED, DTI ON BOTH CHEEKS, COVERED WITH VERSATEL. PATIENT IS ON WOUND BED, OPTIFOAMS ON KNEES AND PILLOWS USED TO OFFLOADED PRESSURE. TUNE UP MECHANIC IN PLACE. SAFETY MEASURES IN PLACE. BED IN LOW POSITION, AND BED LOCKED.
[2020-02-23] MEDS: ASCORBIC ACID 500 MG TAB PO SCH (08:15)
[2020-02-23] MEDS: PANTOPRAZOLE 40 MG INJ VIAL IVP SCH ×2 (08:15→20:36)
[2020-02-23] MEDS: ZINC SULF 220 MG CAP PO SCH (08:15)
[2020-02-23] MEDS: POLYETHYLENE GLYCOL 17 GM/PKT GT SCH ×2 (08:15→20:37)
[2020-02-23] MEDS: AMIODARONE 200 MG TAB PO SCH ×2 (08:16→20:36)
[2020-02-23] MEDS: BLOOD GLUCOSE MONITORING 1 DEV DEV FS SCH ×4 (08:26→21:00)
[2020-02-23] MEDS: INSULIN LISPRO SLIDING SCALE 100 UNITS/ML VIAL SUBQ PRN ×4 (08:27→21:00)
[2020-02-23] MEDS: methylPREDNISolone SS 40 MG/ML VIAL IVP SCH (08:47)
--- NOTE | 2020-02-23 08:48 | NUR ---
BLOOD GLUCOSE CHECKED 284, 6 UNITS HUMALOG COVERED. CHECKED OGT RESIDUAL, RECEIVED 220 ML BROWN/COFFEE GROUND RESIDUAL, HOLD FEEDING FOR NOW AND WILL NOTIFY MD. ADMINISTERED SCHEDULED MEDS VIA OGT, FLUSHED BEFORE AND AFTER. PATIENT HAS ONE SOFT BROWN MODERATE STOOL, WITH ASSIST, PROVIDED HYGIENE CARE, ORAL CARE, CHANGED ALL DIRTY LINENS, REPOSITIONED PATIENT'S HEAD AND ARMS, PATIENT TOLERATED FAIR, FLACC 0. RESPIRATION EVEN AND UNLABORED ON ETT TO VENT, AV/PC FIO2 60, RATE 20,PEEP 10, SPO2 92% AT THIS TIME. APPRAISER IRRIGATION TAX IN PLACE. SAFETY MEASURES IN PLACE. BED IN LOW POSITION, HOB ELEVATED 35 DEGREE, BED LOCKED AND WOUND BED ACTIVATED.
--- NOTE | 2020-02-23 09:41 | NUR ---
SCHEDULED ROCEPHIN GIVEN PER MD ORDER.
--- NOTE | 2020-02-23 10:30 | NUR ---
DR ROLDAN IS ROUNDING ON PATIENT. NOTIFIED DR ROLDAN REGARDS OF HIGH BROWN/COFFEE GROUND RESIDUAL, DR ROLDAN WS AWARE. RECEIVED ORDERS FROM DR ROLDAN, MANAGER DAIRY WILL INPUT ORDERS. PER DR ROLDAN, SLOW FEEDING AT 10 ML/HR WHEN PATIENT IN SUPINE POSITION.
[2020-02-23] MEDS ORDERED: MAG SULF 2000 MG/WATER PREMIX 50 ML IV PRN (10:45)
--- NOTE | 2020-02-23 11:08 | NUR ---
DR PRICE IS ROUNDING ON PATIENT AND WILL ORDER DIALYSIS TODAY.
--- NOTE | 2020-02-23 11:48 | NUR ---
BLOOD GLUCOSE 269, 6 UNIT HUMALOG COVERED. PATIENT HAS A SMALL SOFT BROWN BM, WITH ASSIST, PROVIDED HYGIENE CARE, AND REPOSITIONED PATIENT'S ARMS AND HEAD, PATIENT TOLERATED FAIR. FLACC 0. HOB ELEVATED 35 DEGREE, IT CORPORATE RECRUITER IN PLACE. SAFETY MEASURES IN PLACE.
--- NOTE | 2020-02-23 12:09 | NUR ---
WOUND CARE EVALUATION NOTES: REASON FOR EVALUATION: LOW LULU SCALE AND BUTTOCKS WOUND PRIMARY RN REPORT OF CHANGE OF SKIN CONDITION ON THIS 64 Y/O PT ADMITTED TO [facility] WITH INITIAL DX SOB, COVID POSITIVE. PAST MEDICAL HX INCLUDES HISTORY OF BREAST CANCER, HYPERLIPIDEMIA, HYPERTENSION, DIABETES WELL PARAPLEGIA. ALL ABOVE INFORMATION OBTAINED FROM ADMISSION H&P. PT IS INTUBATED, TF, SKIN IS WARM AND MOIST AT PRONING POSITION, POC DISCUSSED WITH PRIMARY RN AND DR. ASHTON. COMORBIDITIES RELATED TO DELAY WOUND HEALING AND FURTHER SKIN BREAKS: CA, INFECTION, DM, KIDNEY FAILURE, LOW ALBUMIN LEVEL , HYPOXEMIC DECREASE TISSUE PERFUSSION, DECREASE MOBILITY AND FUNCTIONAL ABILITIES, AND HOB ELEVATED THE MAJORITY OF TIMES DUE TO MEDICAL REASONS. COVID RELATED SKIN FAILURE DUE TO TISSUE LESS TOLERATE TO PRESSURE, SHERING AND POSSIBLE ASSOCIATED WITH MICROVASCULAR INJURY INTEGUMENTARY: -LIPS AND ORAL MEMBRANAE DRY AND CLEAN. SKIN INTACT. -HIGH SCHOOL LEARNING SUPPORT TEACHER RELATED SKIN BREAKS LEFT EAR POSTERIOR 0.5X0.5CM SUPERFICIAL DEPTH WITH SURROUNDING TISSUE PURPLE DISCOLORATION DTI -HIGH SCHOOL LEARNING SUPPORT TEACHER RELATED SKIN BREAKS RIGHT CHEEK 2X1 CM DRY ABRASION -HIGH SCHOOL LEARNING SUPPORT TEACHER RELATED SKIN BREAKS RIGHT CHEEK 3X3.5CM CM DRY ABRASION -INCONTINENT ASSOCIATE DERMATITIS (IAD) FROM BUTTOCK GROOVES TO JUAN PABLO-RECTAL, SKIN REDNESS INTACT -COVID RELATED SKIN FAILURE TO COCCYX 1X2CM, JUAN PABLO-WOUND SKIN MOIST SURROUNDING REDNESS INDICATED FURTHER DAMAGE RECOMMENDATIONS: -APPLY VERSATEL DRESSING TO R/L CHEEKS AND LEFT EAR DAILY DRESSING Q5 DAYS AND PRN IF SOILING -CLEANSE BUTTOCK GROOVES TO JUAN PABLO-RECTAL WITH WOUND CLEANSING SOLUTION AND APPLY Z-GUARD COVER WITH FOAM DRESSING QD AND PRN IF SOILING -APPLY FORM DRESSING TO SACROCOCCYX QD AND PRN IF SOILING PREVENTION -APPLY HEEL PROTECTORS TO BOTH HEELS AT ALL TIMES -OFFLOADING AND PADDING PER PROTOCOL WHILE ON PRONING POSITION -OFFLOAD BILATERAL HEELS BY PLACING PILLOWS UNDER CALVES UNLESS OTHERWISE CONTRAINDICATED -PRESSURE REDISTRIBUTION SURFACE THERAPY -TURN AND REPOSITION Q2H, OFFLOAD SACRALCOCCYX AND BUTTOCKS BY TURNING RIGHT AND LEFT -CONTINUE TO FOLLOW RD RECOMMENDATIONS ALL ABOVE RECOMMENDATIONS DISCUSSED WITH PRIMARY RN. PLEASE CONTACT WOUND CARE NURSE FOR ANY QUESTION AND CHANGE OF WOUND CONDITION
--- NOTE | 2020-02-23 12:10 | NUR ---
DR FERGUSON IS ROUNDING ON PATIENT.
--- NOTE | 2020-02-23 12:32 | NUR ---
RECEIVED A CALL FROM PATIENT'S DAUGHTER, UPDATED DINORATH WITH PATIENT'S CURRENT CONDITION AND DINORATH WAS AWARE.
[2020-02-23] MEDS: METOCLOPRAMIDE 10 MG/2 ML INJ VIAL IVP SCH ×2 (12:51→20:36)
--- NOTE | 2020-02-23 12:53 | NUR ---
ADMINISTERED SCHEDULED MED METOCLOPRAMIDE VIA IVP PER MD ORDER. WOUND CARE PERFORMED, APPLIED VERSATEL TO LEFT EAR, CLEANSED BUTTOCK AND JUAN PABLO-RECTAL WITH WOUND SOLUTION AND APPLIED Z-GUARD, SECURED WITH OPTIFOAM. PATIENT TOLERATED FAIR. PREPARED PATIENT AND AWAITING FOR RT FOR SUPINE. DESKTOP SPECIALIST IN PLACE. SAFETY MEASURES IN PLACE.
--- NOTE | 2020-02-23 13:20 | NUR ---
WITH ASSIST FROM RT, POSITIONED PATIENT INTO SUPINE POSITION, PROVIDED HYGIENE CARE, ORAL CARE AND SUCTIONING, CHANGED ALL DIRTY LINENS, USED PILLOWS TO OFFLOADED PRESSURE AND APPLIED HEEL PROTECTORS BILATERALLY. [employer] MARKETING SPECIALIST IN PLACE. SAFETY MEASURES IN PLACE.
--- NOTE | 2020-02-23 14:14 | NUR ---
OGT FEEDING STARTED AT 10 ML/HR PER DR ROLDAN ORDERED. SELENE TAP OUT OPERATOR IS AT BEDSIDE AND PATIENT IS ABOUT TO GET DIALYSIS.
--- NOTE | 2020-02-23 15:00 | NUR ---
ASSUMED CARE OF PT.ONGOING HEMODIALYSIS AT THIS TIME.ETT TO VENT FIO2 75% PC 18 RATE20 PEEP 11.RT IJ ANNABEL CATHETER INTACT.CHIP PICC LINE INTACT INFUSING VERSED 10MG/HR AND FENTANYL 2.5MCG/KG/HR.W/OGT FEEDING ORDERED.10ML RESIDUAL NOTED.W/HOLDEN CATHETER TO BSD DRAINING SCANTY AMT OF CLOUDY URINE.FLACC 0.
[2020-02-23] MEDS: fentaNYL citrate - 50mL vial 2.5 MG in NACL 0.9% 200 ML IV PRN (15:01)
--- NOTE | 2020-02-23 15:05 | NUR ---
ENDORSED PATIENT TO MARY FLYNN FOR CONTINUITY OF CARE. PATIENT IS DOING DIALYSIS.
--- NOTE | 2020-02-23 15:16 | NUR ---
MAGNESIUM 1.7; WITH ORDER TO GIVE 2 GRAMS.ADMINISTERED.
--- NOTE | 2020-02-23 15:35 | NUR ---
FIO2 TITRATED FROM 80% TO 75% SPO2 95%. WILL CONTINUE TO MONITOR. FIO2 WAS INCREASED BY NURSE DUE TO SPO2 DROPPING DURING DIALYSIS. WILL CONTINUE TO MONITOR AND TITRATE.
--- NOTE | 2020-02-23 16:00 | NUR ---
02/23/20 RD FOLLOW UP COMPLETED PLEASE REFER TO NUTRITION ASSESSMENT UNDER CARE ACTIVITY FOR ESTIMATED NUTRITIONAL NEEDS. 1. CURRENT MD ORDER FOR NEPRO AT 10 ML/HR DURING SUPINE. RECOMMEND TO CONTINUE PROSOURCE TID. -THIS PROVIDES 80 ML OF VOLUME, 324 KCAL AND 51 GM OF PROTEIN. THIS MEETS 35% OF KCAL NEEDS AND 100% OF PROTEIN NEEDS. 2. WHEN GI CONDITION IMPROVES, RECOMMEND NEPRO 1.8 @ 60 ML/HR X 8 HOURS WITH PROSOURCE TID. RE-START AT 10 ML/HR. -THIS WILL PROVIDE 1104 KCAL 83 GM OF PROTEIN 3. RECOMMEND FLUSH OF 380 ML BID (TOTAL OF 760 ML TOTAL/DAY) 4. RD TO FOLLOW-UP 2-3 DAYS, HIGH RISK FAM WYLIE RD
--- NOTE | 2020-02-23 17:28 | NUR ---
PT REMAINS ON DOCUMENTED VENT SETTINGS. PT NOT IN ANY DISTRESS AT THIS TIME. ETT IS SECURE WITH A PATENT AIRWAY. VENT ALARMS ON AND FUNCTIONING.
--- NOTE | 2020-02-23 18:00 | NUR ---
PT SEDATED.SR TO ST NOTED ON MONITOR.ETT TO VENT FIO2 70% RATE 20 PEEP11 PC18.OGT INTACT WITH OGT FEEDING NEPRO AT 10ML/HR WITH 100ML COFFEE GROUND RESIDUAL NOTED.RT ANNABEL CATHETER INTACT.PICC LINE TO CRISPIN INTACT , W/GOOD BLOOD RETURN TO BOTH PORTS INFUSING FENTANYL 2.5MCG/KG/HR AND VERSED 10MG/HR.WITH HOLDEN CATHETER TO BSD DRAINING SCANTY AMT OF CLOUDY URINE.FLACC 0
--- NOTE | 2020-02-23 19:22 | NUR ---
RECEIVED PATIENT FROM AM SHIFT. PATIENT WAS SEEN AND ASSESSED. FOUND PATIENT IN SUPINE POSITIONED. PATIENT IS INTUBATED WITH ETT SIZE 7.5 AND SECURED WITH ANCHOR-FAST. PATIENT IS ON VENT SETTINGS: AC/PC RR 20, PIP 18, PEEP 11, FiO2 70% WITH SPO2 OF 95%. VENT IS PLUGGED IN RED OUTLET. ALARMS SET AND AUDIBLE TO ENVIRONMENT. SUCTIONED SMALL AMOUNT OF YELLOW THICK SECRETIONS FROM ETT. AIRWAY IS PATENT. AUSCULTATION REVEALS BILATERAL RALES BREATH SOUNDS ON BOTH UPPER AND LOWER LOBES. PATIENT IS IN NO APPARENT RESPIRATORY DISTRESS AT THIS TIME. HHN TX GIVEN AND PT TOLERATED TX WELL WITH NO ADVERSE REACTION. WILL CONTINUE TO MONITOR PATIENT.
--- NOTE | 2020-02-23 20:00 | NUR ---
phone call to lab; spoke with sally platelet not available at this time.ordered
--- NOTE | 2020-02-23 22:00 | NUR ---
PLACED PATIENT IN PRONE POSITION. PATIENT TOLERATED PROCEDURE WELL. SUCTION SMALL AMOUNT OF YELLOW THICK SECRETIONS FROM ETT. SPO2 93%. BILATERAL BREATH SOUNDS ON AUSCULTATION. PATIENT IS IN NO RESPIRATORY DISTRESS AT THIS TIME. RN AT BEDSIDE. WILL CONTINUE TO MONITOR PATIENT.
[2020-02-24] VITALS (97 sets, daily range): BP systolic 117–168; BP diastolic 54–99
[2020-02-24] MEDS: Z-GUARD PASTE TP SCH ×3 (00:48→13:00)
[2020-02-24] MEDS: ALBUTEROL SULFATE/IPRATROPIU 3 ML SOL IH SCH ×4 (00:52→18:59)
--- NOTE | 2020-02-24 01:22 | NUR ---
pt remains on prone position.bm noted.small amt of soft to liquid stool noted; cleaned.z guard applied.flacc 0
[2020-02-24] MEDS: MIDAZOLAM IV PRN ×2 (02:00→23:34)
[2020-02-24] MEDS: NACL 0.9% IV PRN ×2 (02:00→23:34)
--- NOTE | 2020-02-24 03:05 | NUR ---
pts condition remains unchanged.flacc 0.pt on prone position.no sob noted
--- NOTE | 2020-02-24 04:00 | NUR ---
pt still on prone position.head and arms position changed.oral care done by rt.flacc 0
[2020-02-24] MEDS: METOCLOPRAMIDE 10 MG/2 ML INJ VIAL IVP SCH ×3 (04:48→20:15)
[2020-02-24 06:09] LABS: BASOPHILS % (AUTO) 0.2 % (0.0-2.0); HEMATOCRIT 26.7 % (36-48); HEMOGLOBIN 8.8 g/dL (12.0-16.0); LYMPHOCYTES # (AUTO) 0.7 K/uL (2.5-16.5); LYMPHOCYTES % (AUTO) 5.3 % (20.5-51.1); MEAN CORPUSCULAR HEMOGLOBIN 32 pg (27-31); MEAN CORPUSCULAR HGB CONC 33 g/dL (33-37); MEAN CORPUSCULAR VOLUME 96.3 fL (80-94); MONOCYTES # (AUTO) 0.6 K/uL (0.8-1.0); MONOCYTES % (AUTO) 4.8 % (1.7-9.3); NEUTROPHILS # (AUTO) 11.8 K/uL (1.8-7.7); NEUTROPHILS % (AUTO) 89.7 % (42.2-75.2); PLATELET COUNT (AUTO) 52 K/uL (140-450); RED BLOOD CELL COUNT(AUTO) 2.77 MIL/uL (4.20-5.40); RED CELL DISTRIBUTION WIDTH 16.6 % (11.6-13.7); WHITE BLOOD COUNT (AUTO) 13.1 K/uL (4.8-10.8)
--- NOTE | 2020-02-24 06:12 | NUR ---
called lab re; platelet; blood bank personnel said platelet still not available at this time.will endorsed
[2020-02-24 06:24] LABS: ANION GAP 13.2 (8-16); CARBON DIOXIDE 26.7 mmol/L (21-32); CREATININE 2.1 mg/dL (0.6-1.3); POTASSIUM 3.9 mmol/L (3.5-5.1)
[2020-02-24 06:52] LABS: MAGNESIUM 2.3 mg/dL (1.8-2.4); PHOSPHORUS 3.7 mg/dL (2.5-4.9)
--- NOTE | 2020-02-24 07:30 | NUR ---
RECEIVE REPORT FROM ALEX FLYNN PT IS ON SUPINE, ETT TO VENT O2 SAT93%. IV FLUID NS KVO . AND HAVE VERSED AND FENTATANYL IV DRIP. HOLDEN CATH HAS SCN AMOUT ON DARK URINE. OGT FEEDING ON HOLD.
[2020-02-24] MEDS: BLOOD GLUCOSE MONITORING 1 DEV DEV FS SCH ×4 (08:00→20:15)
[2020-02-24] MEDS: POLYETHYLENE GLYCOL 17 GM/PKT GT SCH ×2 (08:52→20:15)
[2020-02-24] MEDS: methylPREDNISolone SS 40 MG/ML VIAL IVP SCH (08:53)
[2020-02-24] MEDS: PANTOPRAZOLE 40 MG INJ VIAL IVP SCH ×2 (08:53→20:15)
[2020-02-24] MEDS: AMIODARONE 200 MG TAB PO SCH ×2 (08:53→20:14)
[2020-02-24] MEDS: ZINC SULF 220 MG CAP PO SCH (08:54)
[2020-02-24] MEDS: ASCORBIC ACID 500 MG TAB PO SCH (08:54)
[2020-02-24] MEDS: fentaNYL citrate - 50mL vial 2.5 MG in NACL 0.9% 200 ML IV PRN (09:03)
--- NOTE | 2020-02-24 12:30 | NUR ---
H.D COMPLETED REMOVE 2000ML FLUID . PT. VITAL SIGN WITH IN NORMAL LIMIT.
[2020-02-24 15:06] LABS: HEPATITIS A ANTIBODY IGM Negative (Negative); HEPATITIS B SURFACE ANTIBODY Non Reactive (.)
--- NOTE | 2020-02-24 18:59 | NUR ---
RECEIVED PATIENT FROM DAY SHIFT ETT TO VENT ON PC 18,RR20, PEEP 11, 75% FIO2. VENTILATOR PLUGGED INTO RED OUTLET. BMV AT BEDSIDE. ETT SECURED AT DOCUMENTED SETTINGS. ALARMS SET AND FUNCTIONAL. SX SCANT TO MODERATE AMOUNT OF THICK CREAMY YELLOW SECRETION. TX GIVEN VIA INLINE WITH NO ADVERSE REACTION. WILL CONTINUE TO MONITOR.
--- NOTE | 2020-02-24 19:20 | NUR ---
REPORT GIVED TO ALEX FLYNN.
--- NOTE | 2020-02-24 19:30 | NUR ---
ASSUMED CARE OF PT.INITIAL ASSESSMENT COMPLETED.PT SEDATED.SR ON MONITOR.ETT TO VENT FIO2 75% RATE 20 PC 18 PEEP 11; WITH ANNABEL CATHETER TO RT IJ, DRESSING D/I.W/PICC LINE TO CRISPIN INTACT,GOOD BLOOD RETURN TO BOTH PORTS INFUSING FENTANYL DRIP AT 2.5MCG/KG/HR AND VERSED DRIP AT 10MG/HR.W/OGT, 30ML RESIDUAL NOTED.ON NEPRO AT 10ML/HR, INCREASED TO 20ML/HR WITH WATER FLUSH.W/HOLDEN CATHETER TO BSD DRAINING SMALL AMT OF CLOUDY YELLOW URINE.BM NOTED.SMALL AMT OF BROWNISH PASTY STOOL.PT CLEANED.FLACC 0.REPOSITIONED.
--- NOTE | 2020-02-24 20:00 | NUR ---
ORAL CARE USING VAP KIT RENDERED.PT ON DAILY PROTONIX FOR GI PROPHYLAXIS AND SCD FOR DVT PROPHYLAXIS.
[2020-02-24] MEDS: INSULIN LISPRO SLIDING SCALE 100 UNITS/ML VIAL SUBQ PRN (20:17)
--- NOTE | 2020-02-24 22:48 | NUR ---
PATIENT PLACED IN PRONE POSITION. ETT REMAINS SECURED. AIRWAY PATENT. NO DISTRESS NOTED. WILL CONTINUE TO MONITOR
[2020-02-25] VITALS (108 sets, daily range): BP systolic 96–153; BP diastolic 47–99
[2020-02-25] MEDS: Z-GUARD PASTE TP SCH (00:15)
--- NOTE | 2020-02-25 00:27 | NUR ---
PT STILL ON PRONE POSITION.FLACC 0
[2020-02-25] MEDS: ALBUTEROL SULFATE/IPRATROPIU 3 ML SOL IH SCH ×2 (00:40→07:10)
[2020-02-25] MEDS: PANTOPRAZOLE 40 MG INJ VIAL IVP SCH ×2 (01:12→20:32)
[2020-02-25] MEDS: fentaNYL citrate - 50mL vial 2.5 MG in NACL 0.9% 200 ML IV PRN ×2 (02:34→21:10)
--- NOTE | 2020-02-25 03:32 | NUR ---
PTS CONDITION REMAINS UNCHANGED.PT ON PRONE POSITION.FLACC 0
[2020-02-25] MEDS: METOCLOPRAMIDE 10 MG/2 ML INJ VIAL IVP SCH ×2 (04:33→21:00)
--- NOTE | 2020-02-25 05:45 | NUR ---
BM NOTED.SMALL AMT OF WATERY TO SOFT BROWNISH STOOL.PT CLEANED.STILL PRONE POSITION.FLACC 0
[2020-02-25 06:19] LABS: BASOPHILS % (AUTO) 0.4 % (0.0-2.0); EOSINOPHILS % (AUTO) 0.1 % (0.0-4.0); HEMATOCRIT 37.9 % (36-48); HEMOGLOBIN 12.5 g/dL (12.0-16.0); LYMPHOCYTES # (AUTO) 0.4 K/uL (2.5-16.5); MEAN CORPUSCULAR HEMOGLOBIN 32 pg (27-31); MEAN CORPUSCULAR HGB CONC 33 g/dL (33-37); MEAN CORPUSCULAR VOLUME 96.3 fL (80-94); MONOCYTES # (AUTO) 0.5 K/uL (0.8-1.0); MONOCYTES % (AUTO) 4.3 % (1.7-9.3); NEUTROPHILS # (AUTO) 10.9 K/uL (1.8-7.7); PLATELET COUNT (AUTO) 41 K/uL (140-450); RED BLOOD CELL COUNT(AUTO) 3.94 MIL/uL (4.20-5.40); WHITE BLOOD COUNT (AUTO) 11.8 K/uL (4.8-10.8)
[2020-02-25 07:04] LABS: ANION GAP 13.7 (8-16); CREATININE 1.8 mg/dL (0.6-1.3); POTASSIUM 3.7 mmol/L (3.5-5.1)
[2020-02-25 07:09] LABS: PHOSPHORUS 4.2 mg/dL (2.5-4.9)
[2020-02-25 07:27] LABS: LYMPHOCYTES % (AUTO) 3.4 % (20.5-51.1); NEUTROPHILS % (AUTO) 91.8 % (42.2-75.2)
--- NOTE | 2020-02-25 07:30 | NUR ---
RECEIVE REPORT LEVI JOHNSON. SHE IS ON PRONE POSITION. ETT TO VENT OGT ON HOLD.IV FLUID ON LT UPPER [facility] PICC LINE ALL INFUSING WELL . HOLDEN CATH DRAIN SMALL AMOUNT DARK RIKI URINE.
[2020-02-25] MEDS: BLOOD GLUCOSE MONITORING 1 DEV DEV FS SCH ×3 (08:00→21:00)
--- NOTE | 2020-02-25 08:00 | NUR ---
BLOOD SUGAR 231 IN SULIN COVER ORDER.
--- NOTE | 2020-02-25 08:30 | NUR ---
SEEN BY JAMAR AVILA , ORDER RECEIVE,
[2020-02-25] MEDS: methylPREDNISolone SS 40 MG/ML VIAL IVP SCH (09:00)
[2020-02-25] MEDS: ZINC SULF 220 MG CAP PO SCH (09:00)
[2020-02-25] MEDS: AMIODARONE 200 MG TAB PO SCH ×2 (09:00→20:33)
[2020-02-25] MEDS: ASCORBIC ACID 500 MG TAB PO SCH (09:00)
[2020-02-25] MEDS: POLYETHYLENE GLYCOL 17 GM/PKT GT SCH ×2 (09:00→20:32)
--- NOTE | 2020-02-25 10:15 | NUR ---
SEEN BY DR. HARRIS NO ORDER CHANGED
--- NOTE | 2020-02-25 10:45 | NUR ---
SEEN BY MELITON AVILA NO ORDER CHANGED.
--- NOTE | 2020-02-25 14:00 | NUR ---
SEEN BY DR VIRGINIE FERRARO SHE WILL HAVE HEMODIALYSIS IN AM.
--- NOTE | 2020-02-25 17:00 | NUR ---
BLOOOD GLUCOSE 251 INSULIN COVER ORDERED.
--- NOTE | 2020-02-25 19:30 | NUR ---
CHARLEE GIVE TO TROY FLYNN.
[2020-02-25] MEDS: INSULIN LISPRO SLIDING SCALE 100 UNITS/ML VIAL SUBQ PRN (21:43)
[2020-02-26] VITALS (13 sets, daily range): BP systolic 92–131; BP diastolic 49–67
[2020-02-26] MEDS: Z-GUARD PASTE TP SCH (00:41)
[2020-02-26] MEDS: MIDAZOLAM IV PRN (03:09)
[2020-02-26] MEDS: NACL 0.9% IV PRN (03:09)
--- NOTE | 2020-02-26 05:00 | NUR ---
PT STARTED DESATURATING AND CODED, CODE BLUE INITIATED, PT CODED 7 TIMES, FAMILY NOTIFIED REGARDING PTS STATUS, EMERGENCY MEASURES CONTINIOUSLY FOR UNTIL 717 WHEN PT CALLED TIME OF
[2020-02-26] MEDS: METOCLOPRAMIDE 10 MG/2 ML INJ VIAL IVP SCH (05:02)
[2020-02-26 06:10] LABS: BASOPHILS % (AUTO) 0.2 % (0.0-2.0); HEMOGLOBIN 9.9 g/dL (12.0-16.0); LYMPHOCYTES # (AUTO) 0.4 K/uL (2.5-16.5); LYMPHOCYTES % (AUTO) 7.3 % (20.5-51.1); MEAN CORPUSCULAR HEMOGLOBIN 33 pg (27-31); MEAN CORPUSCULAR HGB CONC 33 g/dL (33-37); MEAN CORPUSCULAR VOLUME 100.5 fL (80-94); MONOCYTES % (AUTO) 0.7 % (1.7-9.3); NEUTROPHILS # (AUTO) 4.8 K/uL (1.8-7.7); NEUTROPHILS % (AUTO) 91.8 % (42.2-75.2); PLATELET COUNT (AUTO) 48 K/uL (140-450); RED BLOOD CELL COUNT(AUTO) 2.98 MIL/uL (4.20-5.40); RED CELL DISTRIBUTION WIDTH 17.7 % (11.6-13.7); WHITE BLOOD COUNT (AUTO) 5.2 K/uL (4.8-10.8)
[2020-02-26] MEDS ORDERED: EPINEPHrine PFS 0.1 MG/ML SYR IVP ONE ×2 (06:11→06:48)
[2020-02-26] MEDS ORDERED: NOREPINEPHRINE 4 MG/4 ML VIAL IV ONE (06:13)
[2020-02-26 06:31] LABS: ALBUMIN 1.9 g/dL (3.4-5.0); ANION GAP 14.4 (8-16); CARBON DIOXIDE 26.2 mmol/L (21-32); CREATININE 2.5 mg/dL (0.6-1.3); POTASSIUM 4.6 mmol/L (3.5-5.1)
--- NOTE | 2020-02-26 07:10 | NUR ---
POST CHARTING - PT RECEIVED ON SETTINGS NOTATED PC 18 +10 f 20 90% PT DID NOT TOLERATE PRONING WELL AND WAS RETURNED TO SUPINE AFTER SOME TIME PT SPO2 DESAT TO 70s POST PRONING FIO2 WAS TITRATED TO 100% SPO2 WOULD NOT RISE PAST 70s TIME PASSED PT WENT [place] AND CODE WAS CALLED PT WAS BAGGED COMPRESSIONS WERE GIVEN ROSC WAS OBTAINED 2-3X PRIOR TO DAY SHIFT RELIEVING ME FROM CODE
--- NOTE | 2020-02-26 07:18 | NUR ---
CPR TERMINATED AT THIS TIME, PRONOUNCED BY DR CHILEL.
--- NOTE | 2020-02-26 07:30 | NUR ---
CALL MADE TO TO NOTIFY OF BUT [place] SPEAKING ONLY, WILL ATTEMPT CALLING WITH ONCOLOGY RN PHONE
--- NOTE | 2020-02-26 07:38 | NUR ---
DAUGHTER CATHY CALLED, NOTIFIFED OF , P;OST MORTEM PROCEDURE EXPLAINED, ASKED THEM TO FIND MOURTUARY, FAMILY WANTS TO SEE PT, WILL ASK DENTURE WAXER.
--- NOTE | 2020-02-26 09:40 | NUR ---
CALLED [facility] DIRECTOR OF DEVELOPMENT TO REPORT , ONE OF THE DEPUTIES WILL CALL BACK FOR REPORT PER RACHELLE.
--- NOTE | 2020-02-26 09:40 | NUR ---
[facility] [employer] DEPUTY REGINA PADILLA CALLED BACK, REPORT GIVEN, BODY RELEASED, NO CASE NUMBER. CALL [phone] FOR ANY QUESTIONS.
--- NOTE | 2020-02-26 10:20 | NUR ---
[facility] NOTIFIED OF , NO CASE FOR THIS PATIENT PER JOVANNI, REF #[id number]
--- NOTE | 2020-02-26 14:26 | NUR ---
MADE PHONE CALL TO Lilli [facility],
[2020-02-26 16:45] LABS: HEPATITIS B CORE AB TOTAL QNS (NEGATIVE); HEPATITIS B SURFACE ANTIGEN QNS (NEGATIVE)
--- NOTE | 2020-02-26 18:40 | NUR ---
[facility] HERE TO AREA FIELD PERSON THE REMAINS. PHONE CALL MADE TO DAUGHTER CATHY TO NOTIFY OF AREA FIELD PERSON.
== END 2020-02-26 18:54 | disposition expired | DRG 720 ==
LOC: MED 15:44 → MTU 21:01 → MIC 02-14 19:47
PROVIDERS: ADMIT Family Medicine; ATTEND Family Medicine
PROC: 5A1955Z Respiratory Ventilation, Greater than 96 Consecutive Hours (ICD-10-PCS; principal; 2020-02-15)
PROC: 0BH17EZ Insertion of Endotracheal Airway into Trachea, Via Natural or Artificial Opening (ICD-10-PCS; 2020-02-15)
PROC: XW13325 Transfusion of Convalescent Plasma (Nonautologous) into Peripheral Vein, Percutaneous Approach, New Technology Group 5 (ICD-10-PCS; 2020-02-16)
PROC: 02HV33Z Insertion of Infusion Device into Superior Vena Cava, Percutaneous Approach (ICD-10-PCS; 2020-02-20)
PROC: B548ZZA Ultrasonography of Superior Vena Cava, Guidance (ICD-10-PCS; 2020-02-20)
PROC: 5A1D70Z Performance of Urinary Filtration, Intermittent, Less than 6 Hours Per Day (ICD-10-PCS; 2020-02-20)
PROC: 5A1D70Z Performance of Urinary Filtration, Intermittent, Less than 6 Hours Per Day (ICD-10-PCS; 2020-02-21)
PROC: 5A1D70Z Performance of Urinary Filtration, Intermittent, Less than 6 Hours Per Day (ICD-10-PCS; 2020-02-23)
PROC: 5A1D70Z Performance of Urinary Filtration, Intermittent, Less than 6 Hours Per Day (ICD-10-PCS; 2020-02-25)
PROC: 5A12012 Performance of Cardiac Output, Single, Manual (ICD-10-PCS; 2020-02-26)
DX: A41.89 Other specified sepsis (principal); U07.1 COVID-19; J12.89 Other viral pneumonia; Z68.41 Body mass index [BMI] 40.0-44.9, adult; I46.9 Cardiac arrest, cause unspecified; G82.20 Paraplegia, unspecified; N17.0 Acute kidney failure with tubular necrosis; J96.20 Acute and chronic respiratory failure, unspecified whether with hypoxia or hypercapnia; E43 Unspecified severe protein-calorie malnutrition; N39.0 Urinary tract infection, site not specified; B96.1 Klebsiella pneumoniae [K. pneumoniae] as the cause of diseases classified elsewhere; R74.01 Elevation of levels of liver transaminase levels; I25.10 Atherosclerotic heart disease of native coronary artery without angina pectoris; E78.5 Hyperlipidemia, unspecified; E11.9 Type 2 diabetes mellitus without complications; E78.00 Pure hypercholesterolemia, unspecified; Z90.11 Acquired absence of right breast and nipple; K74.60 Unspecified cirrhosis of liver; I10 Essential (primary) hypertension; Z85.3 Personal history of malignant neoplasm of breast; D64.9 Anemia, unspecified; K57.90 Diverticulosis of intestine, part unspecified, without perforation or abscess without bleeding; E86.0 Dehydration; R19.00 Intra-abdominal and pelvic swelling, mass and lump, unspecified site
CPT/HCPCS: 36415; 36600; 71045; 76830; 80048; 80053; 80305; 81001; 82150; 82803; 82948; 83036; 83615; 83690; 83735; 83880; 84100; 84436; 84439; 84443; 84479; 84484; 85025; 85379; 85610; 85651; 85730; 86140; 86704; 86706; 86708; 86709; 86803; 86886; 86900; 86901; 87040; 87070; 87081; 87086; 87205; 87340; 89220; 93005; 94002; 94003; 94640; 96365; 96367; 96375; 99291; C9113; J0153; J0171; J0282; J0456; J0696; J1100; J1160; J1644; J1650; J1815; J1940; J2001; J2250; J2370; J2765; J2920; J3010; J3475; J3480; J3490; J7030; J7060; P9017; P9041; P9046; U0003